=== PATIENT | female | born 1935 | race Caucasian/White ===

== ENCOUNTER 2023-02-27 04:18 | Emergency (ER) | payer OTHER, SELFPAY ==
[2023-02-27 04:18] VITALS: BMI 41.9
[2023-02-27 04:20] VITALS: BP 143/59
--- NOTE | 2023-02-27 04:24 | ED.GENMED ---
History of Present Illness
General
Chief Complaint: Back Pain
Time Seen by Provider: 02/27/23 04:23
History of Present Illness
History of Present Illness:
HPI: The patient presents due to rather severe back pain. She comes in from [facility]. She has had chronic low back pain and has had epidurals but none since the past 10 years or so. She does not think she has had any recent imaging
of the low back. Patient reports no new bowel or bladder incontinence or retention.
EXAM:
GENERAL: The patient prefers to lay on her left side, she is afebrile, occasional cough no
HEENT: Moist oral mucosa
CARDIOVASCULAR: No murmurs, normal heart rate and rhythm, No chest wall tenderness
PULMONARY: No respiratory distress, breath sounds are clear and equal
ABDOMEN: Soft with no peritoneal signs, no tenderness, elevated BMI
BACK: There is midline L-spine and right paraspinal muscular tenderness
NEUROLOGIC: Good strength all extremities, no coordination deficits, she has good strength in an L5 and S1 distribution to both lower extremities
PSYCHIATRIC: Appropriate mental status, normal insight and judgement
EXTREMITIES: Nontender, no edema, moves all extremities equally
SKIN: No rash, no lesions
ED COURSE:
4:20 AM: I initially evaluated patient
NUMBER AND COMPLEXITY OF PROBLEMS ADDRESSED AT THE ENCOUNTER
� Chronic conditions affecting care: Spinal stenosis, diabetes, high blood pressure, anxiety/depression, heart failure
� Acute Exacerbation and/or Progression of Chronic Illness: This is an acute exacerbation of chronic low back pain
� Differential Diagnosis includes: Exacerbation of low back pain, spinal stenosis, diabetic neuropathy, doubt infectious etiology as patient is afebrile
AMOUNT AND/OR COMPLEXITY OF DATA TO BE REVIEWED AND ANALYZED
� I performed an independent evaluation of and my interpretation is:
EKG:
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
X-rays:
Laboratory Studies:
Other:
� Review of other/old records: The patient was just discharged 2 days ago with acute hypoxic and hypercarbic respiratory failure/CHF
� Clinical information was obtained by an independent historian: I spoke to EMS upon arrival
� Prescriptions/Medications Considered but not given:
� Further testing considered but not performed:
RISK OF COMPLICATIONS AND/OR MORBIDITY OR MORTALITY OF PATIENT MANAGEMENT
� Social determinants of health affecting care: Lives at [facility]
� Discussion with other providers:
� Escalation of care including admission/observation vs risk of discharge considered: Given patient's advanced age will obtain CT imaging. Although she reports rather significant pain she appears fairly comfortable for the most
part. Will give 1 dose of Percocet. On reassessment at 5:45 AM, she overall feels improved after 1 Percocet was given.
Past History
Past History
ED Past Medical History: GERD, HTN, Hypercholesterolemia, NIDDM (With diabetic nephropathy), Hypothyroidism, Psychiatric (Anxiety/depression), Other (Spinal stenosis, gait abnormality, essential tremor, chronic pain syndrome,) and Other (Iron
deficiency anemia)
ED Past Surgical History: Cholecystectomy and Tonsilectomy
Social History
Tobacco: Non-smoker
Alcohol: None
Living: other (Lives in her own apartment at [facility].)
Employment: Retired
Phy Exam
Physical Exam
Physical Exam:
See HPI
Course
Orders/Labs/Results
Orders:
Orders
02/27/23 04:23
CT Lumbar Spine W/o Iv Contras Urgent
Comment:
Reason For Exam: severe low back pain
02/27/23 04:24
Oxycodone/Acetaminophen [Percocet 5/325] 1 tablet PO NOW STA
Vital Signs
Initial and Last Documented VS:
Initial Vital Signs
Temp Pulse Resp BP Pulse Ox
98.9 F 75 20 143/59 93
02/27/23 04:20 02/27/23 04:20 02/27/23 04:20 02/27/23 04:20 02/27/23 04:20
Last Documented Vital Signs
Temp Pulse Resp BP Pulse Ox
98.9 F 75 20 143/59 94
02/27/23 04:20 02/27/23 04:20 02/27/23 04:20 02/27/23 04:20 02/27/23 04:41
*Critical Care Note
Total Time (30-74mins, 75-104mins- exclusive of procedures): Not Applicable
ED Attending Note
-
Portions of this chart may have been created with voice recognition software.� Occasional wrong word or��sound alike� substitutions may have occurred due to the inherent limitations of voice recognition software.
Discharge Plan
Departure
Patient Disposition: Shelter/SNF
Date of Disposition: 02/27/23
Time of Disposition: 05:47
Patient with high blood pressure during this ER visit?: Yes
Discharge Problem:
Back pain
Instructions: Low Back Pain (DC), BLOOD PRESSURE
Prescriptions:
New
oxycodone-acetaminophen [Percocet] 5-325 mg tablet
1 tab PO Q8H PRN (Reason: Pain) Qty: 10 0RF
oxycodone-acetaminophen [Endocet] 5-325 mg tablet
1 tab PO TID PRN (Reason: Pain) Qty: 10 0RF
No Action
sennosides [senna] 1 TABLET tablet
1 tab PO BID
atorvastatin 20 MG tablet
20 mg PO QPM
levothyroxine 100 MCG tablet
100 mcg PO MOTUWETHFRSA
amlodipine 10 MG tablet
10 mg PO DAILY
omeprazole 20 MG capsule,delayed release(DR/EC)
20 mg PO DAILY
montelukast 10 MG tablet
10 mg PO QPM
cholecalciferol (vitamin D3) 1,000 UNITS tablet
1,000 units PO DAILY
Arnuity Ellipta 100 MCG blister with device
1 puff inhalation R DAILY
acetaminophen [Tylenol Extra Strength] 500 mg Tablet
1,000 mg PO TID
levothyroxine [Synthroid] 50 mcg Tablet
50 mcg PO HO
gabapentin 300 mg Capsule
300 mg PO HS
bisacodyl [Dulcolax (bisacodyl)] 5 mg Tablet,Delayed Release (Dr/Ec)
5 mg PO DAILYPRN PRN (Reason: CONSTIPATION)
gabapentin 100 mg Capsule
200 mg PO DAILY
alum-mag hydroxide-simeth [Mag-Al Plus] 200-200-20 mg/5 mL Suspension
30 ml PO Q6HPRN PRN (Reason: HEARTBURN) Qty: 0 0RF
levalbuterol HCl 0.63 mg/3 mL Solution For Nebulization
0.63 mg INHALATION R Q6
bumetanide 0.5 mg Tablet
0.5 mg PO DAILY
ipratropium bromide 0.02 % Solution
2.5 ml INHALATION R Q6
Januvia 25 mg Tablet
25 mg PO . DIRECTED
Rx Instructions:
start 02/12/23
guaifenesin [Mucinex] 600 mg Tablet Extended Release 12hr
600 mg PO Q12H
Eliquis 5 mg Tablet
5 mg PO BID Qty: 60 0RF
dapagliflozin propanediol [Farxiga] 10 mg Tablet
10 mg PO DAILY Qty: 30 0RF
Referrals:
Ortega Sherwood MD [Family Provider] -
Activity Restrictions/Additional Instructions:
The CAT scan shows severe degenerative disease. We gave a one-time dose of Percocet. I feel this would be reasonable to continue if your doctor at [place] feels appropriate. I have given you a paper prescription for Percocet to use only for severe
pain.
Interventions
Interventions:
*Risk Screen - Suicide Last Done: 02/27/23 04:20
*General Assessment Last Done: 02/27/23 04:20
*Neglect/Abuse Screening Last Done: 02/27/23 04:20
*ED COVID-19 Vaccine History Last Done: 02/27/23 04:44
ED-Musculoskeletal Assessment Last Done: 02/27/23 04:41
[2023-02-27] MEDS: PERCOCET 5/325 1 TABLET PO (04:31)
--- NOTE | 2023-02-27 07:39 | EDRN ---
Report received at shift change, pt is discharge and awaiting transport to [facility]. Pt denies any complaints at this time.
[2023-02-27 10:05] LABS: Glucose - Point of Care 158 mg/dl (70-99)
[2023-02-27 10:59] VITALS: BP 102/87
== END 2023-02-27 11:15 ==
LOC: EMR 04:18
PROVIDERS: EMERGENCY PHYSICIAN Emergency Medicine; FAMILY PHYSICIAN Family Medicine
DX: M54.50 Low back pain, unspecified (principal); I11.0 Hypertensive heart disease with heart failure; I50.9 Heart failure, unspecified; E11.21 Type 2 diabetes mellitus with diabetic nephropathy; E78.00 Pure hypercholesterolemia, unspecified; F32.A Depression, unspecified; F41.9 Anxiety disorder, unspecified; E03.9 Hypothyroidism, unspecified; M48.00 Spinal stenosis, site unspecified; D50.9 Iron deficiency anemia, unspecified; G25.0 Essential tremor; G89.4 Chronic pain syndrome; K21.9 Gastro-esophageal reflux disease without esophagitis; Z79.01 Long term (current) use of anticoagulants; Z98.1 Arthrodesis status; Z90.49 Acquired absence of other specified parts of digestive tract; Z88.8 Allergy status to other drugs, medicaments and biological substances
CPT/HCPCS: 99284; 72131; 82962

== ENCOUNTER → 2023-03-17 15:19 | Outpatient (REF) | payer OTHER, SELFPAY ==
[2023-03-17 16:01] LABS: Blood Urea Nitrogen 33 mg/dl (7-17); Calcium 8.8 mg/dl (8.4-10.2); Carbon Dioxide 26 mmol/L (22-30); Chloride 107 mmol/L (98-107); Glucose 195 mg/dl (70-99); Potassium 4.4 mmol/L (3.5-5.1); Sodium 138 mmol/L (135-145); eGFR 31.41
== END ==
LOC: OLABWHC 15:19
PROVIDERS: ATTENDING PHYSICIAN Family Medicine
DX: J96.01 Acute respiratory failure with hypoxia (principal)
CPT/HCPCS: 36415; 80048

== ENCOUNTER 2024-08-20 14:34 | Inpatient (IN) | payer OTHER, SELFPAY ==
[2024-08-20] VITALS (14 sets, daily range): BP systolic 104–180; BP diastolic 41–111; PULSE 2–75; BMI 38.6; BMI 39.7
[2024-08-20 10:11] LABS: Urine Character Clear (Clear)
[2024-08-20 10:15] LABS: Hematocrit 37.9 % (37.0-47.0); Hemoglobin 10.7 g/dL (12.0-16.0); Mean Corp Hgb Conc. 28.2 g/dL (33.0-37.0); Mean Corpuscular Volume 107.1 fL (81.0-99.0); Nucleated Red Blood Cells % 0.5 %; Platelet Count 312 10^3/uL (130-400); Red Cell Dist. Width 14.0 % (11.5-14.5)
[2024-08-20 10:25] LABS: Urine Red Blood Cell None Seen /HPF (0-2)
[2024-08-20 10:37] LABS: Hypochromasia 1+; Normal RBC Morphology No
--- NOTE | 2024-08-20 10:42 | ED.GENMED ---
History of Present Illness
General
Chief Complaint: Urinary Symptoms
Source: patient, family (Son) and direct care specialist
Time Seen by Provider: 08/20/24 10:33
History of Present Illness
History of Present Illness:
89-year-old female presents to the emergency room for evaluation of some confusion, lack of energy, low pulse ox reading. Patient resides at [facility]. She has a aide that stays with her who noted that she has been more tired and more
confused. Patient evidently has had some falls recently. Because of these falls the family was told she needed to have 24-hour aide coverage. Patient is unaware as to why she is here in the emergency room. She is not able to provide much
history. History abided by her son and the aide.
Past History
Past History
ED Past Medical History: GERD, HTN, Hypercholesterolemia, NIDDM (With diabetic nephropathy), Hypothyroidism, Psychiatric (Anxiety/depression), Other (Spinal stenosis, gait abnormality, essential tremor, chronic pain syndrome,) and Other (Iron
deficiency anemia)
ED Past Surgical History: Cholecystectomy and Tonsilectomy
Social History
Tobacco: Non-smoker
Alcohol: None
Living: other (Lives in her own apartment at [facility]
Employment: Retired
Phy Exam
Physical Exam
Physical Exam:
General: Awake, Alert, Oriented X3. Appears stated age, chronically ill, pale complexion
Vitals: Hypoxic on room air
Head: Atraumatic
Eyes: Pupils equal, EOMI
Throat: Airway intact, no exudates
Neck: Trachea midline
Lungs: Crackles bilateral bases
Heart: Regular rate, no murmurs
Abd: Soft, Nontender, No pulsatile mass
Neuro: grossly nonfocal
Skin: Warm, dry, no rash
Extremities: pulses equal b/l, 2+ edema
Course
Orders/Labs/Results
Orders:
Orders
08/20/24 09:50
Complete Blood Count/With Diff Urgent
08/20/24 09:58
Urinalysis Reflex To Culture Urgent
Date Specimen was Collected: 08/20/24
Time Specimen was Collected: 09:49
Urine Microscopic Reflex Cult Urgent
08/20/24 10:40
Add On- LAB Urgent
Tests Added?: bnp, troponin
08/20/24 10:41
CT Head W/o Iv Contrast Urgent
Comment:
Reason For Exam: altered mental status
CR Chest - 2 Views Urgent
Comment:
Reason For Exam: sob
08/20/24 11:06
COVID-19 Antigen Urgent
Source: Nasal Swab
Comprehensive Metabolic Panel Urgent
NT-proBNP Urgent
Troponin I Urgent
Venous Blood Gas Urgent
%Oxygen/Room Air: 4L
08/20/24 11:57
Ipratropium/Albuterol Sulfate [Duoneb] 3 ml INH R NOW ONE
08/20/24 12:43
Furosemide [Lasix] 40 mg IV NOW STA
08/20/24 12:46
Bipap [RESP] Urgent
Patient to use own unit?: No
Inspiratory Pressure (cm H2O): 12
Expiratory Pressure (cm H2O): 4
Oxygen Liter Flow: 4
08/20/24 13:16
Electrocardiogram (*1) Urgent
Reason for Study: Shortness of Breath
EKG- Treatment ONCE
08/20/24 13:54
Admit/Transfer Patient As Directed
Co-Sign Provider:
Level of Care: Inpatient admission
Assign to:: IMU- Intermediate Care
Physician / Group: Louie/Hospitalist
Diagnosis: Acute hypoxic and hypercapn resp failure, AEHFpEF
Reason for Hospitalization: Acute hypoxic and hypercapn resp failure, AEHFpEF
Expected length of stay greater than two midnights?: Yes
ELOS- Estimated Length of Stay in days: 3
I certify the patient meets the requirements for IP care: Yes
PRN Pain Medication Management As Directed
May give lesser potent ordered pain med per pt: Yes
preference::
Protocol:: Medication orders for pain may be administered in a
manner that supports deferring to patient preference
when the pt is:
- Requesting an ordered lesser potent pain medication.
Least to most potent pain medications are defined
as: acetaminophen < NSAID < tramadol < opioids
(morphine, oxycodone, hydromorphone).
- Requesting a lesser dose of the same medication IF
ORDERED.
- Requesting a less intrusive route of administration
if both routes are prescribed by the provider (PO <
IV).
08/20/24 14:02
Code Status As Directed
Resuscitation Status: Do not resuscitate
Reached after discussion with pt or family/Healthcare POA: Yes
DNR Bracelet Application ONCE
Abnormal Lab Results
08/20/24 08/20/24 08/20/24
09:50 09:58 11:06
WBC 12.0 H 10^3/uL
(4.8-10.8)
RBC 3.54 L 10^6/uL
(4.20-5.40)
Hgb 10.7 L g/dL
(12.0-16.0)
MCV 107.1 H fL
(81.0-99.0)
MCHC 28.2 L g/dL
(33.0-37.0)
Abs Immat Gran (auto) 0.2 H 10^3/uL
(0-0.05)
Absolute Neuts (auto) 9.7 H 10^3/uL
(1.4-6.5)
Absolute Lymphs (auto) 1.1 L 10^3/uL
(1.2-3.4)
Absolute Monos (auto) 0.8 H 10^3/uL
(0.1-0.6)
Immature Gran % 1.4 H %
(0-0.5)
Neutrophils % 80.7 H %
(42.2-75.2)
Lymphocytes % 9.5 L %
(20.5-51.1)
VBG pH 7.20 L
(7.32-7.43)
VBG pCO2 76 H* mmHg
(35-48)
VBG pO2 54 H mmHg
(30-50)
VBG HCO3 29.7 H mmol/L
(22-27)
Chloride 108 H mmol/L
(98-107)
Carbon Dioxide 32 H mmol/L
(22-30)
BUN 52 H mg/dl
(7-17)
Creatinine 1.8 H mg/dL
(0.6-1.0)
Glucose 396 H mg/dl
(70-99)
Troponin I 0.107 H* ng/ml
Total Protein 6.1 L g/dl
(6.3-8.2)
Albumin 3.4 L g/dl
(3.5-5.0)
Urine Bacteria (Reflex) Few A
(Negative)
Urine Glucose 4+ A
(Negative)
Urine Albumin (Reflex) 3+ A
(Neg - Trace)
08/20/24 09:50
08/20/24 11:06
Vital Signs
Initial and Last Documented VS:
Initial Vital Signs
Temp
97.6 F
08/20/24 09:41
Last Documented Vital Signs
Temp Pulse Resp BP Pulse Ox
97.6 F 74 19 125/111 81
08/20/24 09:41 08/20/24 14:15 08/20/24 14:15 08/20/24 14:00 08/20/24 15:16
MDM/Problems Addressed
Differential Diagnosis Includes:
Urinary tract infection, electrolyte abnormality, heart failure, pneumonia or viral infection
MDM/Problems Addressed:
Urinalysis not consistent with a urinary tract infection. However the patient's overall presentation suggest there may be some other process other than a UTI. Pulse ox seemed persistently low though it was not picking up a great waveform.
Oxygenation did improve with supplemental oxygen. VBG shows CO2 retention with a respiratory acidosis. Chest x-ray is poor inspiratory effort. BNP is elevated. Troponin is elevated. Suspect the patient has a predominance of congestive heart
failure though a component of COPD may exist as well. Treat with a DuoNeb here. 40 of IV Lasix. BiPAP initiated given the respiratory acidosis
Chronic conditions affecting care: HTN, Cardiomyopathy and COPD
*Radiology
Radiology exam reviewed: preliminary read by ED provider (Poor inspiratory effort perhaps some cephalization)
*Pulse Oximetry
SaO2: 81
Oxygen Mode of Delivery: Room air
Patient hypoxic: yes
*Critical Care Note
Total Time (30-74mins, 75-104mins- exclusive of procedures): 38 min
comment:
Critical care statement: A total of 38 minutes of critical care time was provided for this patient. This includes management of unstable vital signs, evaluation of the patient at bedside, reviewing the patient's pertinent medical records, discussion
with consultants, review of old EKGs and review of pertinent medical records. This time with separate from time utilized to perform the aforementioned documented procedures
ED Attending Note
-
Portions of this chart may have been created with voice recognition software.� Occasional wrong word or��sound alike� substitutions may have occurred due to the inherent limitations of voice recognition software.
Discharge Plan
Departure
Patient Disposition: Admit
Date of Disposition: 08/20/24
Time of Disposition: 12:48
Admit to: IMU
Presentation/result/management discussed w/ accepting MD/DO: Hospitalist
Condition: Fair
Discharge Problem:
CHF (congestive heart failure), Acute respiratory failure with hypercapnia
Interventions
Interventions:
*Risk Screen - Suicide Last Done: 08/20/24 09:41
*General Assessment Last Done: 08/20/24 09:41
*Neglect/Abuse Screening Last Done: 08/20/24 09:41
*ED- Fall Risk Assessment Last Done: 08/20/24 09:41
*ED COVID-19 Vaccine History Last Done: 08/20/24 09:41
ED-Female Genitourinary Assessment Last Done: 08/20/24 10:31
[2024-08-20 11:27] LABS: COVID-19 Antigen Negative (Negative)
[2024-08-20 11:34] LABS: Venous Blood Gas B.E. 0.1 mmol/L (-4 to +4); Venous Blood Gas O2 Sat % 89.3 %
[2024-08-20 11:36] LABS: Venous Blood Gas O2 Therapy 4L
[2024-08-20 11:57] LABS: ALT (SGPT) 10 U/L (0-35); AST (SGOT) 14 U/L (14-36); Albumin 3.4 g/dl (3.5-5.0); Alkaline Phosphatase 93 U/L (38-126); Blood Urea Nitrogen 52 mg/dl (7-17); Calcium 8.7 mg/dl (8.4-10.2); Carbon Dioxide 32 mmol/L (22-30); Chloride 108 mmol/L (98-107); Estimated Creatinine Clearance 25 ml/min; Glucose 396 mg/dl (70-99); Potassium 4.8 mmol/L (3.5-5.1); Sodium 141 mmol/L (135-145); Total Protein 6.1 g/dl (6.3-8.2); eGFR 26.93
[2024-08-20] MEDS: DUONEB 3 ML INH ×3 (12:03→19:22)
[2024-08-20 12:13] LABS: Troponin I 0.107 ng/ml
--- NOTE | 2024-08-20 13:00 | HPS.HSE ---
Family Physician
-
Family Physician: Anu Earl
Chief Complaint
-
Shortness of breath and weakness
History of Present Illness
The patient is an 89-year-old woman with past medical history significant for prior admission here 02/2023 for acute hypoxic and hypercarbic respiratory failure, heart failure with preserved EF, pulmonary hypertension, right bundle branch block,
essential hypertension, DVT and presumed pulmonary embolism, on Eliquis, CKD, anemia of chronic disease, and hypothyroidism. Who presents to the emergency department via EMS secondary to increasing weakness, increasing confusion, lack of energy, and
noted noticed to have a low pulse ox reading where she resides in [facility]. She has an aide that stays with her who notes that she has she has been more tired and confused and has been falling recently. The family was told that she requires
24-hour aide secondary to falls and weakness.In the emergency department she is tachypneic in the 30s and she is started on BiPAP therapy.
Medical History
Past Medical History
Past Medical History: Reports CAD, CHF, COPD, GERD, HTN and Hypercholesterolemia
Past Surgical History: Reports Cholecystectomy and Tonsilectomy
Social History
Tobacco: Non-smoker
Alcohol: None
Drug: None
Living: Assisted Living (Lives in her own apartment at [facility])
Family History
Family History: Not pertinent
Allergies / Home Medications
Allergies reflects when Allergies were last updated in [employer].
Home Medications with original date entered in [employer]
Allergy/Medication List:
Allergies
Allergy/AdvReac Type Severity Reaction Status Date / Time
diltiazem (From Cardizem) Allergy SEE BELOW Verified 08/20/24 09:48
hydralazine Allergy Rash Verified 08/20/24 09:48
Home Medications
amlodipine 10 mg tablet 10 mg PO DAILY Blood pressure 05/20/21
atorvastatin 20 mg tablet 20 mg PO DAILY High cholesterol 05/20/21
cholecalciferol (vitamin D3) 25 mcg (1,000 unit) tablet 1,000 units PO MOWEFR Supplement 05/20/21
fluticasone furoate 100 mcg/actuation blister powder for inhalation (Arnuity Ellipta) 1 puff inhalation R DAILY Lung/breathing issues 05/20/21
levothyroxine 100 mcg tablet 100 mcg PO MOTUWETHFRSA Thyroid 05/20/21
montelukast 10 mg tablet 10 mg PO QPM Lung/breathing issues 05/20/21
omeprazole 20 mg capsule,delayed release 20 mg PO DAILY Gastrointestinal issue 05/20/21
sennosides 8.6 mg tablet (senna) 1 tab PO BID Constipation 05/20/21
acetaminophen 500 mg tablet (Tylenol Extra Strength) 1,000 mg PO TID Pain 01/25/23
bisacodyl 5 mg tablet,delayed release (Dulcolax (bisacodyl)) 5 mg PO DAILYPRN PRN CONSTIPATION 01/25/23
gabapentin 300 mg capsule 300 mg PO BID Pain 01/25/23
levothyroxine 50 mcg tablet (Synthroid) 50 mcg PO HO Thyroid 01/25/23
bumetanide 0.5 mg tablet 0.5 mg PO BID Fluid Retention/Swelling 02/12/23
guaifenesin 600 mg tablet, extended release 12 hr (Mucinex) 600 mg PO Q12H MUCUS 02/12/23
ipratropium bromide 0.02 % solution for inhalation 2.5 ml inhalation R Q6 Lung/Breathing Issues 02/12/23
levalbuterol HCl 0.63 mg/3 mL solution for nebulization 0.63 mg inhalation R Q6 PRN Lung/Breathing Issues 02/12/23
apixaban 5 mg tablet (Eliquis) 5 mg PO BID #60 tabs 02/25/23
dapagliflozin propanediol 10 mg tablet (Farxiga) 10 mg PO DAILY #30 tabs 02/25/23
aluminum-mag hydroxide-simethicone 200 mg-200 mg-20 mg/5 mL oral susp (Mag-Al Plus) 5 ml PO QIDPRN PRN HEARTBURN 08/20/24
lidocaine 4 % topical patch 1 patch topical DAILY 08/20/24
linagliptin 5 mg tablet 5 mg PO DAILY 08/20/24
Review of Systems
-
A 12 point ROS was completed and negative except as noted: Yes
Physical Exam
Vital Signs
Vital Signs
Temp
97.6 F
08/20/24 09:41
Physical Exam
General: Appears Chronically Ill
HEENT: NormoCephalic, Anicteric and Other (BIPAP)
Respiratory: Wheezes, Crackles and Other (BIPAP)
Cardiac: S1/S2, Regular Rhythm and Murmur
GI: Soft, Non Tender, Non Distended, Normal Bowel Sounds and Other (obese)
Musculoskeletal: No Clubbing, No Cyanosis, Edema, Left Lower Extremity and Edema, Right Lower Extremity
Skin: Warm and Dry
Neuro: No Motor Deficits and Nonfocal/grossly intact
Psych: Calm
Laboratory Results
-
08/20/24 09:50
08/20/24 11:06
Laboratory Results
Total Bilirubin 0.3 mg/dl (0.2-1.3) 08/20/24 11:06
AST 14 U/L (14-36) 08/20/24 11:06
ALT 10 U/L (0-35) 08/20/24 11:06
Alkaline Phosphatase 93 U/L (38-126) 08/20/24 11:06
Troponin I 0.107 ng/ml H* 08/20/24 11:06
Data Reviewed
-
Medical Tests (Nuc Med, Echo, EKG etc): Image Personally Visualized and interpreted and Report Reviewed by me
Impression/Plan
-
IMPRESSION:The patient is an 89-year-old woman with past medical history significant for prior admission here 02/2023 for acute hypoxic and hypercarbic respiratory failure, heart failure with preserved EF, pulmonary hypertension, right bundle branch
block, essential hypertension, DVT presumed pulmonary embolism, on Eliquis, CKD, anemia of chronic disease, and hypothyroidism, who presents to the emergency department via EMS secondary to increasing weakness, increasing confusion over the prior
several days, general lack of energy, and noted noticed to have a low pulse ox reading where she resides in [facility]. She recently starting having 24/7 are on Wednesday night (one day prior to hospitalization), and was working on getting
medications in order, however son at bedside thinks that patient may be getting her medications confused/ not taking them appropriately. She has an aide that stays with her who notes that she has she has been more tired and confused and has been
falling recently. The family was told that she requires 24-hour aide secondary to falls and weakness. In the emergency department she is tachypneic in the 30s and she is started on BiPAP therapy.
# Acute hypoxic and hypercapnic respiratory failure likely secondary to acute exacerbation of CHF and likely component of COPD exacerbation, possibly in part due medication non-compliance from confusion
-Admit inpatient level of care to IMU with continued BiPAP noninvasive ventilation that was initiated in the ED and oxygen at 56% FiO2 at 9 Liters
-Continue with IV Lasix twice daily and monitor laboratory
-Serial cardiac biomarkers
-echo, daily weights, I/O
-check ABG
-Cards and Pulm consultation appreciated
-Duo-neb scheduled
#Acute metabolic encephalopathy likely due to hypercapnic RF, no evidence for acute infection at this time
-cont BIPAP, ABG pending
-Nebs scheduled, monitor
# Troponin elevation likely related to demand ischemia from acute exacerbation of heart failure
-Echocardiogram
-serial cardiac biomarkers
-Most recent echo here was February 2023 showed mild to moderate mitral stenosis, mild mitral regurgitation, moderate aortic stenosis, trace aortic regurgitation, with normal biventricular size and systolic function without regional wall motion
abnormalities. will repeat echo
#Valvular dx
- known mild /MS and A/CKI
-repeat echo pending
#RBBB, chronic, unchanged
-EKG without acute ischemia
# Metabolic acidosis, likely a mixed picture with respiratory component
-ABG pending
# Uncontrolled type 2 diabetes, with hyperglycemia glucose of 326 on admission
-SSI
-hold Linagliptin for now, continue Farxiga
# Generalized weakness
-PT eval
-CM eval for dispo-may require higher level of care at [facility], currently independent w 31/08 care that started this prior Wednesday
#BRYAN on CKD
creat 1.8 up from baseline likely 1.3-1.6
-avoid nephrotoxic agents, monitor w diuresis
#COPD, likely acute exacerbation
-BIPA as above
-on Arnuity, levalbuterol, ipratropium, montelukast OP- will give scheduled Duo-nebs for now and cont montelukast and Arnuity
# Essential hypertension
-amlodipine w hold parameters
# GERD
# Hyperlipidemia
# Hwo-dkflhom-eroikbhlx diabetes with diabetic nephropathy
# Hypothyroidism
# Anxiety and depression
# Spinal stenosis with gait abnormality
DVT proph-Eliquis
DNR
[2024-08-20] MEDS: LASIX 40 MG IV ×2 (13:14→17:45)
--- NOTE | 2024-08-20 14:34 | CM ---
CM reviewed chart and met with pt and son bedside in ED. Pt lives in [place] apt at [facility].
Needs assistance with ADLs and personal care, has aides through [employer], previously 5 hours a day Wednesday through Wednesday, but will be 24 hours a day when pt is discharged, pt arranged them herself. Pt ambulates with RW, also has SPC.
Pt did have Bipap machine in past but told me no one ever taught her how to use it so she returned it.
PCP: Anu Earl
Pharmacy: [facility]
Pt's son expressed concern that pt may need higher LOC at [facility], family will discuss.
CM will continue to follow for discharge planning needs.
--- NOTE | 2024-08-20 14:53 | CON.PUL ---
Consultation
Consultation Request
Date/Time Consultation Requested: 08/20
Date/Time Consultation Performed: 08/20
Reason for Consultation: Hypoxia
Medical History
-
History of Present Illness:
History obtained from the patient and also from the chart. 89-year-old female resident of [facility], presents with lack of energy, low oxygen level, confusion. She has a history of diabetes, chronic pain syndrome. ED records also suggest
urinary symptoms. Upon arrival to [facility], noted to be afebrile. No other vitals are noted on intake, white count 12, creatinine 1.8. VBG showed pCO2 of 76, placed on BiPAP, admitted for further management. We are asked to help from
a pulmonary standpoint
According to the patient, she is not sure why she is here but she states 'not feeling well'. She is presently off BiPAP, I observed her eating dinner.
She denies chest pain, abdominal pain, nausea pain she has some mild left flank pain as she admits to fall and hitting her bathtub on the left flank about 2 weeks ago
She states she lives independently, is able to take care of herself
.
PMH: History of heart failure, coronary disease, hypertension, hyperlipidemia, COPD, GERD, history of pulmonary hypertension, right bundle branch block, DVT on chronic anticoagulation, CKD, chronic anemia, hypothyroidism. History of chronic pain
syndrome per records. History of cholecystectomy, tonsillectomy
Past Medical History
Past Medical History: None (See above)
Past Surgical History: None (See above)
Social History
Tobacco: Non-smoker
Alcohol: None
Drug: None
Living: Custodial ([facility], her own apartment)
Family History
Family History: Reviewed & Not Pertinent
Allergies / Home Medications
Allergies
Allergy/AdvReac Type Severity Reaction Status Date / Time
diltiazem (From Cardizem) Allergy SEE BELOW Verified 08/20/24 09:48
hydralazine Allergy Rash Verified 08/20/24 09:48
Home Medications
�Medication �Instructions �Recorded �Confirmed �Last Taken �Type
amlodipine 10 mg tablet 10 mg PO DAILY Blood pressure 05/20/21 08/20/24 Unknown History
atorvastatin 20 mg tablet 20 mg PO DAILY High cholesterol 05/20/21 08/20/24 Unknown History
cholecalciferol (vitamin D3) 25 1,000 units PO MOWEFR Supplement 05/20/21 08/20/24 Unknown History
mcg (1,000 unit) tablet
fluticasone furoate 100 1 puff inhalation R DAILY 05/20/21 08/20/24 Unknown History
mcg/actuation blister powder for Lung/breathing issues
inhalation (Arnuity Ellipta)
levothyroxine 100 mcg tablet 100 mcg PO MOTUWETHFRSA Thyroid 05/20/21 08/20/24 Unknown History
montelukast 10 mg tablet 10 mg PO QPM Lung/breathing issues 05/20/21 08/20/24 Unknown History
omeprazole 20 mg capsule,delayed 20 mg PO DAILY Gastrointestinal 05/20/21 08/20/24 Unknown History
release issue
sennosides 8.6 mg tablet (senna) 1 tab PO BID Constipation 05/20/21 08/20/24 Unknown History
acetaminophen 500 mg tablet 1,000 mg PO TID Pain 01/25/23 08/20/24 Unknown History
(Tylenol Extra Strength)
bisacodyl 5 mg tablet,delayed 5 mg PO DAILYPRN PRN CONSTIPATION 01/25/23 08/20/24 Unknown History
release (Dulcolax (bisacodyl))
gabapentin 300 mg capsule 300 mg PO BID Pain 01/25/23 08/20/24 Unknown History
levothyroxine 50 mcg tablet 50 mcg PO HO Thyroid 01/25/23 08/20/24 Unknown History
(Synthroid)
bumetanide 0.5 mg tablet 0.5 mg PO BID Fluid 02/12/23 08/20/24 Unknown History
Retention/Swelling
guaifenesin 600 mg tablet, 600 mg PO Q12H MUCUS 02/12/23 08/20/24 Unknown History
extended release 12 hr (Mucinex)
ipratropium bromide 0.02 % 2.5 ml inhalation R Q6 02/12/23 08/20/24 Unknown History
solution for inhalation Lung/Breathing Issues
levalbuterol HCl 0.63 mg/3 mL 0.63 mg inhalation R Q6 PRN 02/12/23 08/20/24 Unknown History
solution for nebulization Lung/Breathing Issues
apixaban 5 mg tablet (Eliquis) 5 mg PO BID #60 tabs 02/25/23 08/20/24 Unknown Rx
dapagliflozin propanediol 10 mg 10 mg PO DAILY #30 tabs 02/25/23 08/20/24 Unknown Rx
tablet (Farxiga)
aluminum-mag hydroxide-simethicone 5 ml PO QIDPRN PRN HEARTBURN 08/20/24 08/20/24 Unknown History
200 mg-200 mg-20 mg/5 mL oral susp
(Mag-Al Plus)
lidocaine 4 % topical patch 1 patch topical DAILY 08/20/24 08/20/24 Unknown History
linagliptin 5 mg tablet 5 mg PO DAILY 08/20/24 08/20/24 Unknown History
Review of Systems
-
All other systems: Negative unless noted
Vitals / Labs / Diagnostic Testing
Vital Signs
Temp Pulse Resp BP Pulse Ox
97.6 F 74 19 125/111 98
08/20/24 09:41 08/20/24 14:15 08/20/24 14:15 08/20/24 14:00 08/20/24 14:15
Lab Data
08/20/24 09:50
08/20/24 11:06
Diagnostic Testing:
Physical Exam
-
HEENT: Normocephalic, Anicteric and Other (Large neck)
Cardiovascular: S1/S2, Regular Rhythm and Murmur (2/6 systolic murmur)
Respiratory: Wheeze (Mild), Rales (few), Rhonchi (n) and Non-Labored Respirations
GI: Soft, Non Distended (Obese) and Non Tender
Neurology: Awake, Alert, Oriented (Know she is in the hospital) and No Motor Deficits (Moves all extremities)
Skin: Other (Left flank mild bruise, no abdominal discomfort)
General: Comfortable (Conversant)
Assessment
-
89-year-old female with history of heart failure, hypoxic and hypercarbic respiratory in the past, pulm hypertension, right bundle branch block, DVT/PE presents with increased weakness, shortness of breath, confusion. Patient also notes she fell 2
weeks ago when she hit the bathtub, denied loss of consciousness or head trauma. She admits to hitting her left flank. Admitted for hypoxic and hypercarbic respiratory failure requiring BiPAP. We are asked to comment on pulmonary process
Acute hypoxic respiratory insufficiency, requiring BiPAP
Suspected chronic hypercarbia based on VBG
Suspected acute heart failure
Diastolic dysfunction, valvular disease
Moderate aortic stenosis per records
Normal EF per echo in February 2023
Right bundle branch block, per EKG
Gait dysfunction, recent fall 2 weeks ago
Acute renal insufficiency, creatinine 1.8
Baseline 1.3-1.6
Hyperglycemia
Conditions present prior to admission
History of recurrent admission for TME
Recurrent UTI, E. coli
Coronary disease
Valvular disease, aortic stenosis/mitral stenosis
Asthma/COPD
Hypothyroidism
Hypertension/hyperlipidemia
[facility] resident
DNR
Plan/recommendations
At this time, patient appears to have stabilized
Acute hypercarbic respiratory failure however this is a VBG.
ABG confirms mild hypercarbia, pH 7.29. Similar to prior ventilatory abnormality in February 2023 at which time she was here for hypoxic and hypercarbic respiratory failure
Patient is presently off her BiPAP, she is feeling improved
Would continue BiPAP tonight and as needed
For now can keep off
Avoid narcotic therapy, sedation
Head of bed elevated
Remains on outpatient medications, including Eliquis.
Patient currently receiving Lasix twice daily
Follow urine output, creatinine
Follow electrolytes
Hyperglycemia noted. Follow blood sugars. Currently on insulin sliding scale, continue outpatient medications
DNR status noted
Reviewed with nursing
We will follow
--- NOTE | 2024-08-20 15:16 | CON.CAR ---
Addendum entered and electronically signed by Joey Palacios MD 08/20/24 17:31:
Correction: Resident note and not WOODWORKING MACHINE OPERATOR note.
Addendum entered and electronically signed by Joey Palacios MD 08/20/24 17:29:
I saw and examined the patient.
The WOODWORKING MACHINE OPERATOR's note was reviewed and I agree with the note.
Comment: Acute respiratory failure. We suspect mixed etiology. Perhaps more pulmonary than cardiac. But we will continue diuresis, r/o [place], and update an echocardiogram. Meds can be adjusted based on echo and HF diagnosis but given lung disease
with wheezing will avoid BB unless severe LV dysfxn is found.
Echo 02/15/2023: Normal LVEF/RV fxn, mild/mod MS, mild MR, mod
Original Note:
Consultation
Consultation Request
Date/Time Consultation Requested: 08/20/24 14:10
Date/Time Consultation Performed: 08/20/24 15:00
Requesting Provider: Dr. Ashwin Oneal
Performing Provider: Dr. Joey Palacios
Reason for Consultation: CHF exacerbation
Medical History
-
Chief Complaint: CHF exacerbation
History of Present Illness:
89-year-old female with past medical history of prior admission here in 02/2023 for acute hypoxemic and hypercarbic respiratory failure, heart failure with preserved ejection fraction, pulmonary hypertension, right bundle branch block, essential
hypertension, DVT and presumed PE, on Eliquis, CKD, anemia of chronic disease, hypothyroidism, hyperlipidemia, essential tremor, spinal stenosis, gait abnormality and peripheral neuropathy presented to the ER due to increasing weakness, confusion,
lack of energy. Son Jim was present and stated that she has had recurrent falls recently and Dr. García'evangelista Ellington recommended 24-hour care. Caregiver at [facility] was having a hard time getting him to the bathroom, etc. due to increasing
instability, weakness and confusion. Patient has felt increasingly short of breath in the last few days and noted to have low pulse ox at [facility]. She was brought to ER via EMS. She denies any chest pain, heart palpitations, N/V/D, ab pain,
dysuria, increased urinary frequency or feelings like she is going to pass out. She states that when she has fallen it is due to feeling off balance rather than feeling lightheaded.
In the ED, blood pressure 180/67, heart rate 65, respiratory rate 30 placed on BiPAP 56% FiO2 on 9 L, afebrile, WBC 12.0, left shift 80.7% neutrophil, troponin 0.107, creatinine 1.8, blood glucose 396. VBG pH 7.2, pCO2 76. Portable chest x-ray (-)
for acute process. EKG normal sinus with RBBB. She received 40mg IV lasix, duonebs and was admitted for further evaluation. Cardiology consulted for suspected CHF exacerbation.
Past Medical History
Past Medical History: CHF (HFpEF (02/15/23 EF 55-60%) ), Hypercholesterolemia, Hypothyroidism, Valvular Disease (moderate aortic stenosis) and Other (GERD, hypertension, type 2 diabetes with diabetic neuropathy, anxiety/depression, spinal stenosis,
gait abnormality, essential tremor, chronic pain syndrome, iron deficiency anemia)
Past Surgical History: Other (Cholecystectomy, tonsillectomy)
Social History
Tobacco: Non-Smoker
Alcohol: None
Drug: None
Living: Assisted Living
Employment: Retired
Family History
Family History: Other (mom - CAD)
Allergies / Home Medications
Allergy/AdvReac Type Severity Reaction Status Date / Time
diltiazem (From Cardizem) Allergy SEE BELOW Verified 08/20/24 09:48
hydralazine Allergy Rash Verified 08/20/24 09:48
�Medication �Instructions �Recorded �Confirmed �Type
amlodipine 10 mg tablet 10 mg PO DAILY Blood pressure 05/20/21 08/20/24 History
atorvastatin 20 mg tablet 20 mg PO DAILY High cholesterol 05/20/21 08/20/24 History
cholecalciferol (vitamin D3) 25 1,000 units PO MOWEFR Supplement 05/20/21 08/20/24 History
mcg (1,000 unit) tablet
fluticasone furoate 100 1 puff inhalation R DAILY 05/20/21 08/20/24 History
mcg/actuation blister powder for Lung/breathing issues
inhalation (Arnuity Ellipta)
levothyroxine 100 mcg tablet 100 mcg PO MOTUWETHFRSA Thyroid 05/20/21 08/20/24 History
montelukast 10 mg tablet 10 mg PO QPM Lung/breathing issues 05/20/21 08/20/24 History
omeprazole 20 mg capsule,delayed 20 mg PO DAILY Gastrointestinal 05/20/21 08/20/24 History
release issue
sennosides 8.6 mg tablet (senna) 1 tab PO BID Constipation 05/20/21 08/20/24 History
acetaminophen 500 mg tablet 1,000 mg PO TID Pain 01/25/23 08/20/24 History
(Tylenol Extra Strength)
bisacodyl 5 mg tablet,delayed 5 mg PO DAILYPRN PRN CONSTIPATION 01/25/23 08/20/24 History
release (Dulcolax (bisacodyl))
gabapentin 300 mg capsule 300 mg PO BID Pain 01/25/23 08/20/24 History
levothyroxine 50 mcg tablet 50 mcg PO HO Thyroid 01/25/23 08/20/24 History
(Synthroid)
bumetanide 0.5 mg tablet 0.5 mg PO BID Fluid 02/12/23 08/20/24 History
Retention/Swelling
guaifenesin 600 mg tablet, 600 mg PO Q12H MUCUS 02/12/23 08/20/24 History
extended release 12 hr (Mucinex)
ipratropium bromide 0.02 % 2.5 ml inhalation R Q6 02/12/23 08/20/24 History
solution for inhalation Lung/Breathing Issues
levalbuterol HCl 0.63 mg/3 mL 0.63 mg inhalation R Q6 PRN 02/12/23 08/20/24 History
solution for nebulization Lung/Breathing Issues
apixaban 5 mg tablet (Eliquis) 5 mg PO BID #60 tabs 02/25/23 08/20/24 Rx
dapagliflozin propanediol 10 mg 10 mg PO DAILY #30 tabs 02/25/23 08/20/24 Rx
tablet (Farxiga)
aluminum-mag hydroxide-simethicone 5 ml PO QIDPRN PRN HEARTBURN 08/20/24 08/20/24 History
200 mg-200 mg-20 mg/5 mL oral susp
(Mag-Al Plus)
lidocaine 4 % topical patch 1 patch topical DAILY 08/20/24 08/20/24 History
linagliptin 5 mg tablet 5 mg PO DAILY 08/20/24 08/20/24 History
Review of Systems
-
History Source: Patient
Constitutional: No Symptoms
EENT: No Symptoms
Respiratory: Trouble Breathing
Cardiac: No Symptoms
Abdomen/GI: No Symptoms
: No Symptoms
Neurological: Weakness
Physical Exam
Vital Signs
Temp Pulse Resp BP Pulse Ox
97.6 F 74 19 125/111 81
08/20/24 09:41 08/20/24 14:15 08/20/24 14:15 08/20/24 14:00 08/20/24 15:16
Lab Results
08/20/24 09:50
08/20/24 11:06
Troponin I 0.107 ng/ml H* 08/20/24 11:06
Iie-I-Jowzjscrtst Pept 51248 pg/ml 08/20/24 11:06
Physical Exam
General: Respiratory Distress
Respiratory: Wheezes
Cardiac: S1/S2, Regular Rhythm and Murmur (4/6 systolic ejection murmur at aortic point )
GI: Soft, Non Tender, Non Distended and Normal Bowel Sounds
Musculoskeletal: No Cyanosis and No Edema
Skin: Warm and Dry
Neuro: AO x 3
Psych: Calm
Impression / Plan
-
89-year-old female with past medical history of prior admission here in 02/2023 for acute hypoxemic and hypercarbic respiratory failure, heart failure with preserved ejection fraction, pulmonary hypertension, right bundle branch block, essential
hypertension, DVT and presumed PE on Eliquis, CKD, anemia of chronic disease, hypothyroidism, hyperlipidemia, essential tremor, spinal stenosis, gait abnormality and peripheral neuropathy presented to the ER due to increasing weakness, confusion,
lack of energy.
Acute hypoxic and hypercapnic respiratory failure likely secondary to COPD exacerbation, possibly in part due medication non-compliance from confusion. Unclear if CHF exacerbation playing a role but unable to exclude.
-She did state she has not been taking her levalbuterol neb because she cannot find her medication making COPD exacerbation more likely.
-BNP 13,100 however no significant lower extremity swelling, wheezes not crackles on physical exam
-Baseline weight does appear around 92.9 from prior hospitalization but that was a year and a half ago.
-Agree with BiPap - wean O2 as able
-last echo 02/15/23 LVEF 55-60%, mod aortic stenosis, pulm artery pressure 38mmg
-Repeat echo pending
-ABG pending
-Agree with Lasix 40 BID for now
-Cont farxiga
-Monitor I&O, daily weights, fluid restriction and low Na diet
-Pulmonary appreciated
Troponin elevation - likely demand ischemia from COPD exacerbation
-EKG non-ischemic
-Cont Bipap, ABG pending
-Duonebs
-Trend troponin to peak
Valvular disease - mod , mild MR, MS
-moderate aortic stenosis
-Repeat echo pending
RBBB
-EKG non-ischemic
HTN
-Currently hypertensive
-Amlodipine with hold parameters
Hx DVT
-On eliquis 5 BID
Metabolic acidosis, likely a mixed picture with respiratory component
-ABG pending
DVT on eliquis
DNR
[2024-08-20 16:41] LABS: B.E. 2.0 mmol/L; HCO3 29.8 mmol/L (21-28); O2 Saturation % 99.4 % (94-98); PCO2 62 mmHg (32-35); PO2 130 mmHg (83-108)
[2024-08-20 16:58] LABS: Glucose - Point of Care 249 mg/dl (70-99)
[2024-08-20 17:40] LABS: Troponin I 0.155 ng/ml
[2024-08-20] MEDS: SINGULAIR 10 MG PO (17:46)
[2024-08-20] MEDS: TYLENOL 1000 MG PO ×2 (17:46→21:24)
[2024-08-20] MEDS: FLUSH (NSS) 1 FLUSH IV (17:46)
[2024-08-20] MEDS: MUCINEX 600 MG PO (17:46)
[2024-08-20] MEDS: NOVOLOG FLEXPEN-LOW RESISTANCE 2 UNITS SC (18:04)
--- NOTE | 2024-08-20 18:20 | PTCARENOTE ---
Received patient from ED on stretcher. Patient AAO X2. Arrived on BIPAP. Patient admitted with hypercarbic respiratory failure. Blood gas obtained on unit. Patient currently on 3.5L o2 via n/c with pulse ox 95%-96%. Patient to wear BIPAP
tonight when sleeping. Lungs with scattered expiratory/inspiratory wheezing, coarse breath sounds and crackles at bases. Occasional non-productive cough. SR with PVC's HR 80'S-90'S. Patient received two dose of IV lasix today. Pure wick in place
at patient's request. Oriented patient to room. Call dickerson in reach. Patient had falls at home. Bed alarm in on.
[2024-08-20] MEDS: FLOVENT 44 MCG INHALER 2 PUFF INH (19:23)
[2024-08-20] MEDS: NEURONTIN 300 MG PO (20:10)
[2024-08-20] MEDS: ELIQUIS 5 MG PO (20:10)
[2024-08-20] MEDS: DESENEX/MITRAZOL/ZEASORB 1 APPLIC TOPICAL (20:10)
[2024-08-20] MEDS: SENOKOT 8.6 MG PO (20:11)
[2024-08-20 21:44] LABS: Glucose - Point of Care 223 mg/dl (70-99)
--- NOTE | 2024-08-20 23:38 | PTCARENOTE ---
Assumed care for patient overnight. Pt AAOx3, forgetful at times. Received pt on 3L NC. SpO2 95%. Pt has a moist occasional cough. Fine crackles at the base of the lungs, coarse throughout. NSR with PVCs on the monitor. RT placed the pt on BiPAP, pt
removed the BiPAP two times within the hour. RT refusing BiPAP overnight, despite education, RT aware. Purewick in place at patients request. Pt has MASD to groin abdomen area and b/l breasts, desenex and ABD pads placed for moisture absorption.
Moisture barrier applied to buttock and perineal area. Call dickerson within reach.
[2024-08-21] VITALS (13 sets, daily range): BP systolic 117–168; BP diastolic 41–99; PULSE 2–78; BMI 39.2
[2024-08-21 00:11] LABS: Troponin I 0.186 ng/ml
--- NOTE | 2024-08-21 03:13 | PTCARENOTE ---
Patient ripping off tele leads and biting at pulse ox. Pt stating 'I need to get out of here'. Pt disoriented to place. Attempted to reorient and calm the pt. Pt settled. Bed alarm is on.
[2024-08-21] MEDS: MUCINEX 600 MG PO ×2 (04:54→17:09)
[2024-08-21] MEDS: SYNTHROID 100 MCG PO (04:54)
[2024-08-21] MEDS: FLOVENT 44 MCG INHALER 2 PUFF INH ×2 (06:23→18:09)
[2024-08-21] MEDS: DUONEB 3 ML INH ×4 (06:23→18:08)
[2024-08-21 06:30] LABS: Blood Urea Nitrogen 52 mg/dl (7-17); Calcium 8.9 mg/dl (8.4-10.2); Carbon Dioxide 29 mmol/L (22-30); Chloride 110 mmol/L (98-107); Estimated Creatinine Clearance 26 ml/min; Glucose 233 mg/dl (70-99); Magnesium 2.5 mg/dl (1.6-2.3); Potassium 4.8 mmol/L (3.5-5.1); Sodium 143 mmol/L (135-145); eGFR 31.02
[2024-08-21 06:46] LABS: Troponin I 0.160 ng/ml
[2024-08-21 07:59] LABS: Glucose - Point of Care 227 mg/dl (70-99)
--- NOTE | 2024-08-21 08:13 | PTCARENOTE ---
Assumed care of patient this AM. It was reported from night RN that patient did not wear BIPAP overnight. Patient had ripped the mask of overnight and refused to wear BIPAP. Patient was educated several times that this was the tx that she needs
to get better. Currently patient has n/c at 3L with pulse ox92%-95%. VS stable,afebrile. SR on monitor with PVC'S. Bed alarm on. Call dickerson in reach.
--- NOTE | 2024-08-21 08:35 | W.PN.HOSP.TC ---
Today's Communication/Plan
-
Add doxycycline
Await echo
Continue nebulizer treatments
Continue Mucinex
Encourage out of bed
Assessment / Plan
Assessment / Plan
89-year-old female with shortness of breath. At [facility] her pulse ox was found to be low. Son also felt that she has been getting her medicines confused and not taking them properly. She has an aide who stays with her and notes that she has
been more tired and confused.
CVS: S1-S2 normal, SM at apex and AA
Chest: Coarse breath sounds, cough
Abdomen: Soft, NT / Bowel sounds present
Extremities: No edema
EKG-sinus rhythm, left axis deviation, RBBB
# Acute hypoxic and acute on chronic hypercapnic respiratory failure likely secondary to CHF and component of COPD exacerbation
Patient was started on BiPAP in the ER
ABG shows primary respiratory acidosis with secondary metabolic acidosis
Continue BiPAP at bedtime
# Acute on chronic HFpEF continue IV Lasix
Check echo
On Bumex 0.5 mg p.o. twice daily as outpatient
# Chronic CO2 retention suspected per pulmonary note
Continue BiPAP at night
continue DuoNebs
Add doxycycline for acute bronchitis
On Arnuity Ellipta, ipratropium bromide, levalbuterol, montelukast as outpatient
# Acute TME likely secondary to above-resolving
# Elevated troponin-likely nonischemic myocardial injury secondary to CHF
Check echo
# Valvular heart disease-mild to moderate mitral stenosis, mild MR, moderate AAS, trace AI
# Hypertension-continue amlodipine
# Diabetes-hemoglobin A1c-8.8
Continue linagliptin Farxiga, Accu-Cheks and sliding scale coverage(moderate)
# Hyperlipidemia-continue statin
# Hypothyroidism-continue levothyroxine TSH noted. Repeat in 6 weeks as outpatient.
# Right BBB
# Generalized weakness/ambulatory dysfunction with history of fall
# Acute kidney injury on CKD stage III-monitor with diuresis.
# GERD-continue PPI
# History of left lower extremity DVT-continue Eliquis
# Anxiety and depression
# Spinal stenosis with gait abnormality/neuropathy-continue gabapentin
# Sleep apnea-patient was discharged to rehab February 2023 with a BiPAP. She had difficulty using it there therefore came back to [facility] without one.
# IBS
# Obesity with a BMI of 39
# DVT prophylaxis-Eliquis
# DNR
Spoke to patient's son and updated in detail. He stated that patient had 2 falls in the past few days at [facility] and they arranged for 24-hour care. He is also not sure if she was taking her medicines that much might have been some confusion
about her not being able to take her medicines.
Part of this note was created using voice recognition system. Occasional wrong word or��sound alike� substitutions may have inadvertently occurred due to the inherent limitations of voice recognition software. If noted kindly bring it to my
attention for correction.
Anticipated Discharge: > 48 hours
Subjective/Interval History
-
Date of Service: August 21, 2024
Objective Data
-
Labs:
Laboratory Results
08/21/24
05:52
Sodium 143
Potassium 4.8
Chloride 110 H
Carbon Dioxide 29
BUN 52 H
Creatinine 1.6 H
Glucose 233 H
Calcium 8.9
Vital Signs:
Vital Signs
Temp Pulse Resp BP Pulse Ox
98.6 F 65 30 121/43 94
08/21/24 07:56 08/21/24 08:00 08/21/24 08:00 08/21/24 08:00 08/21/24 08:00
I&O
08/20/24 08/21/24 08/22/24
06:59 06:59 06:59
Intake Total 480 / 480
Output Total 200 / 200
Balance 280 / 280
[2024-08-21 08:53] LABS: Glycohemoglobin (HgbA1c) 8.8 % (4.0-5.6)
--- NOTE | 2024-08-21 09:31 | W.PN.PUL3 ---
Today's Communication / Plan
-
Refused BIPAP, ABGs not improving from 08/20
She is not sure if she would continue therapy in the future, we discussed GOC/hospice
She feels she would rather ' quickly'
I would consider consult to hospice if she does not wish to pursue further treatment, this discussion was witnessed by RN
Defer to team to follow up on GOC discussions
Assessment
-
89-year-old female with history of heart failure, hypoxic and hypercarbic respiratory in the past, pulm hypertension, right bundle branch block, DVT/PE presents with increased weakness, shortness of breath, confusion. Patient also notes she fell 2
weeks ago when she hit the bathtub, denied loss of consciousness or head trauma. She admits to hitting her left flank. Admitted for hypoxic and hypercarbic respiratory failure requiring BiPAP. We are asked to comment on pulmonary process
Acute hypoxic respiratory insufficiency, requiring BiPAP--refusing
Suspected chronic hypercarbia based on VBG
Suspected acute heart failure
Diastolic dysfunction
Moderate aortic stenosis per records
Normal EF per echo in February 2023
Right bundle branch block, per EKG
Gait dysfunction, recent fall 2 weeks ago
Acute renal insufficiency, creatinine 1.8
Baseline 1.3-1.6
Hyperglycemia
Conditions present prior to admission
History of recurrent admission for TME
Recurrent UTI, E. coli
Coronary disease
Valvular disease, aortic stenosis/mitral stenosis
Asthma/COPD
Hypothyroidism
Hypertension/hyperlipidemia
[facility] resident
DNR
Plan/recommendations
At this time, patient appears to have stabilized
Acute hypercarbic respiratory failure however this is a VBG.
ABG confirms mild hypercarbia, pH 7.29. Similar to prior ventilatory abnormality in February 2023 at which time she was here for hypoxic and hypercarbic respiratory failure
Studies reviewed: 02/2023-- 7.
ABGs 08/20/24--7. -> 7. (persistent)
Patient is presently off her BiPAP, she has been refusing
Would continue BiPAP tonight and as needed--she understands risks of refusing treatment but states she does not wish to continue going on
We discussed GOC this AM, she feels she may be ready for hospice if not improving
We would need to obtain set up at home but not sure if she would comply
Last admission in 2023 for similar, instructed to FU as OP for sleep eval, did not pursue
Avoid narcotic therapy, sedation
Head of bed elevated
Remains on outpatient medications, including Eliquis.
Patient currently receiving Lasix twice daily
Follow urine output, creatinine
Follow electrolytes
Hyperglycemia noted. Follow blood sugars.
Currently on insulin sliding scale, continue outpatient medications
PT/OT, OOB as able
DNR status noted
Reviewed with nursing
GOC discussions, consideration for hospice if she declines treatment
Diagnostic Data
CXR 08/20/24- No acute disease of the chest considering the limited inspiration
02/21/23- Improved aeration left lower lung field. Probable residual mild pneumonia
ECHO 02/15/23- Normal biventricular size and systolic function without regional wall motion abnormality. Mild to moderate mitral stenosis. Mild mitral regurgitation (may be underestimated due to acoustic shadowing). Moderate aortic stenosis. Trace
aortic regurgitation. Compared to previous echo 05/27/21, aortic stenosis now moderate from mild to moderate on the prior study.
Total time spent today was 54 minutes for this encounter. Time includes reviewing laboratory test/imaging results, reviewing pertinent medical records, obtaining and reviewing medical history, performing an appropriate exam, ordering medications,
tests and procedures. Time also includes documentation of this encounter, coordinating patient care and communicating with other healthcare professionals. Total time does not include separately billed tests performed on this date of service.
Subjective Data
-
Date of Service:
Date of Service: August 21, 2024
Chief Complaint: Pulmonary Follow Up
Subjective:
Has been refusing PAP therapy
She is not sure if she wants to keep receiving treatment
Objective Data
Data Reviewed
Vital Signs / I&O / Oxygen:
Vital Signs
Temp Pulse Resp BP Pulse Ox
98.6 F 65 30 121/43 94
08/21/24 07:56 08/21/24 08:00 08/21/24 08:00 08/21/24 08:00 08/21/24 08:00
Intake and Output
08/20/24 08/21/24 08/22/24
06:59 06:59 06:59
Intake Total 480 / 480
Output Total 200 / 200
Balance 280 / 280
SaO2 94
Nasal Cannula flow liters per 3
minute
Physical Exam
General: Comfortable and Other (NAD, obese, deconditioned appearing)
HEENT: Normocephalic, Anicteric and Moist Mucous Membranes
Cardiovascular: S1-S2, Regular Rhythm and Peripheral Edema
Respiratory: Crackles (decreased overall) and Non-Labored Respirations
GI: Soft, Non Distended and Non Tender
Neurology: Awake, Alert, Oriented and No Motor Deficits
Skin: Warm and Dry
Labs/Micro/Reports
Lab Data
08/20/24 09:50
08/21/24 05:52
Laboratory Results
08/20/24
16:33
pH 7.29 L
pCO2 62 H
pO2 130 H
HCO3 29.8 H
O2 Delivery Level
[2024-08-21] MEDS: NOVOLOG FLEXPEN-LOW RESISTANCE 3 UNITS SC (09:35)
[2024-08-21] MEDS: NOVOLOG FLEXPEN-MODERATE RESISTANCE SC (09:45)
[2024-08-21] MEDS: FARXIGA 10 MG PO (10:09)
[2024-08-21] MEDS: PROTONIX 40 MG PO (10:09)
[2024-08-21] MEDS: NEURONTIN 300 MG PO ×2 (10:09→19:45)
[2024-08-21] MEDS: LIPITOR 20 MG PO (10:09)
[2024-08-21] MEDS: NORVASC 10 MG PO (10:09)
[2024-08-21] MEDS: SENOKOT 8.6 MG PO (10:09)
[2024-08-21] MEDS: ELIQUIS 5 MG PO ×2 (10:09→19:45)
[2024-08-21] MEDS: LASIX 40 MG IV ×2 (10:10→17:10)
[2024-08-21] MEDS: TYLENOL 1000 MG PO ×3 (10:10→21:06)
[2024-08-21] MEDS: DESENEX/MITRAZOL/ZEASORB 1 APPLIC TOPICAL ×2 (10:11→21:08)
--- NOTE | 2024-08-21 10:43 | W.PN.CD ---
Addendum entered and electronically signed by Vitaliy Francisco MD 08/21/24 11:04:
I saw and evaluated the patient. I reviewed the resident�s note and agree with findings and plan as documented in the resident�s note.
89-year-old woman with history of moderate aortic stenosis ( Mean gradient 22 mmHg by echo 02/2023 )DVT/PE on Eliquis, COPD RBBB CKD and anemia. Patient presented with respiratory insufficiency due to combination of COPD and suspected HFpEF.
Currently comfortable on 2 L nasal cannula. Creatinine improved from 1.8-1.6 with diuresis. Weight trending down
-Continue diuresis with close monitoring of renal function. Consider transition to oral diuretic tomorrow.
-Follow-up echo to reassess left ventricular function and aortic stenosis
-Troponin peak 0.186 likely non-WA troponin related to COPD and CHF. Await echo
-Treatment of COPD as directed by primary team
Original Note:
Today's Communication / Plan
-
Cont Lasix 40mg IV BID today
Likely transition to home bumex 0.5 BID tomorrow
Impression / Plan
-
89-year-old female with past medical history of prior admission here in 02/2023 for acute hypoxemic and hypercarbic respiratory failure, heart failure with preserved ejection fraction, pulmonary hypertension, right bundle branch block, essential
hypertension, DVT and presumed PE on Eliquis, CKD, anemia of chronic disease, hypothyroidism, hyperlipidemia, essential tremor, spinal stenosis, gait abnormality and peripheral neuropathy presented to the ER due to increasing weakness, confusion,
lack of energy.
Acute hypoxic and hypercapnic respiratory failure likely combination of COPD exacerbation and CHF exacerbation.
-Agree with BiPap at bed time- wean O2 as able
-ABG primary resp acidosis with secondary metabolic acidosis
-On neb treatment
-Appreciate pulmonology
Acute on chronic HFpEF exacerbation
-last echo 02/15/23 LVEF 55-60%, mod aortic stenosis, pulm artery pressure 38mmg
-Repeat echo pending
-Agree with Lasix 40 BID for today - likely transition to home bumex 0.5 PO BID tomorrow as does not appear in significant volume overload
-Cont farxiga
-Monitor I&O, daily weights, fluid restriction and low Na diet
Troponin elevation - likely demand ischemia from COPD exacerbation
-EKG non-ischemic
-Cont Bipap
-Duonebs
-Troponin peak at 0.186
Valvular disease - mod , mild MR, MS
-moderate aortic stenosis
-Repeat echo pending
RBBB
-EKG non-ischemic
HTN
-Currently hypertensive
-Amlodipine with hold parameters
Hx DVT
-On eliquis 5 BID
DVT on eliquis
DNR
Subjective: Patient appears confused. She denies any chest pain or heart palpitations. She is currently in 3L O2.
Physical Exam
Vital Signs/Labs
Vital Signs
Temp Pulse Resp BP Pulse Ox
98.6 F 83 25 160/61 93
08/21/24 07:56 08/21/24 10:00 08/21/24 10:00 08/21/24 10:00 08/21/24 10:00
08/20/24 08/21/24 08/22/24
06:59 06:59 06:59
Actual Weight 94 kg
08/20/24 09:50
08/21/24 05:52
Magnesium 2.5 mg/dl (1.6-2.3) H 08/21/24 05:52
Free T4 0.93 ng/dl (0.78-2.19) 08/21/24 05:53
08/20/24
11:06
Izz-S-Tehwncehbsu Pept 45524
LAB Results
08/20/24 08/20/24 08/20/24
11:06 16:39 23:23
Troponin I 0.107 H* 0.155 H* D 0.186 H*
08/21/24
05:53
Troponin I 0.160 H*
Physical Exam
Constitutional: Confusion
Cardiovascular: Rhythm & rate is regular, Pedal edema is absent and JVD pressure is normal
Respiratory: Crackles Absent
GI: Soft, Non tender and Normal bowel sounds
Data Reviewed
-
Date of Service: August 21, 2024
[2024-08-21] MEDS: VIBRAMYCIN 100 MG PO ×2 (11:36→19:45)
[2024-08-21 11:59] LABS: Vitamin B12 820 pg/ml (239-931)
[2024-08-21] MEDS: NOVOLOG FLEXPEN-LOW RESISTANCE SC (12:40)
[2024-08-21 12:41] LABS: Glucose - Point of Care 324 mg/dl (70-99)
[2024-08-21 13:23] LABS: B.E. 4.4 mmol/L; HCO3 31.9 mmol/L (21-28); O2 Saturation % 94.2 % (94-98); PCO2 62 mmHg (32-35); PO2 60 mmHg (83-108)
[2024-08-21] MEDS: NOVOLOG FLEXPEN-MODERATE RESISTANCE 7 UNITS SC (13:44)
--- NOTE | 2024-08-21 16:25 | PTCARENOTE ---
Attempted to put patient back on BIPAP for a nap but patient could not tolerate. Repeat ABG obtained today. Patient has intermittent confusion. Patient had to BM's in bedpan today. VS stable.
[2024-08-21 17:06] LABS: Glucose - Point of Care 225 mg/dl (70-99)
[2024-08-21] MEDS: VITAMIN D3 (cholecalciferol) 25 MCG PO (17:09)
[2024-08-21] MEDS: SINGULAIR 10 MG PO (17:10)
[2024-08-21] MEDS: FLUSH (NSS) 2 FLUSH IV (17:10)
[2024-08-21] MEDS: NOVOLOG FLEXPEN-MODERATE RESISTANCE 3 UNITS SC (17:12)
[2024-08-21] MEDS: NOVOLOG FLEXPEN 4 UNITS SC (17:13)
--- NOTE | 2024-08-21 17:13 | CM ---
Tasha IV. This CM spoke with liaison at [facility] where patient resides with daily caregivers: initially was 6 hr /day, SURVEY COORDINATOR was increased to 24/7. Liaison reported that she spoke with son and he is attempting to have patient placed in a higher
level of care, perhaps assisted living. Discharge POC: TBD [facility] ith 24/7 care vs AL vs SNF/LTC.
--- NOTE | 2024-08-21 18:45 | PTCARENOTE ---
Patient will be transferred to 4th floor room 414 bed 2. Report given to Carmela NUGENT.
[2024-08-21] MEDS: SENOKOT PO (21:03)
[2024-08-21 21:58] LABS: Glucose - Point of Care 257 mg/dl (70-99)
[2024-08-22] VITALS (8 sets, daily range): BP systolic 108–152; BP diastolic 46–71; PULSE 2–86; BMI 40.4
--- NOTE | 2024-08-22 02:44 | PTCARENOTE ---
Patient transferred from IMU via stretcher. [id number]. Patient insists on purewick despite multiple RNs educated on UTI and infection. Denied pain at current time. Bed alarm applied. Oriented to unit. Call dickerson within reach.
[2024-08-22] MEDS: SYNTHROID 100 MCG PO (05:12)
[2024-08-22] MEDS: MUCINEX 600 MG PO ×2 (05:12→15:12)
[2024-08-22 07:15] LABS: Glucose - Point of Care 253 mg/dl (70-99)
[2024-08-22] MEDS: NOVOLOG FLEXPEN 4 UNITS SC ×2 (07:23→12:44)
[2024-08-22] MEDS: NOVOLOG FLEXPEN-MODERATE RESISTANCE 5 UNITS SC (07:23)
[2024-08-22] MEDS: FARXIGA 10 MG PO (07:24)
[2024-08-22] MEDS: LIPITOR 20 MG PO (07:24)
[2024-08-22] MEDS: SENOKOT 8.6 MG PO ×2 (07:24→19:50)
[2024-08-22] MEDS: NEURONTIN 300 MG PO ×2 (07:24→19:50)
[2024-08-22] MEDS: VIBRAMYCIN 100 MG PO ×2 (07:24→19:50)
[2024-08-22] MEDS: NORVASC 10 MG PO (07:24)
[2024-08-22] MEDS: PROTONIX 40 MG PO (07:24)
[2024-08-22] MEDS: TYLENOL 1000 MG PO ×2 (07:24→21:55)
[2024-08-22] MEDS: ELIQUIS 5 MG PO ×2 (07:24→19:50)
[2024-08-22] MEDS: TYLENOL PO (07:25)
[2024-08-22] MEDS: DESENEX/MITRAZOL/ZEASORB 1 APPLIC TOPICAL ×2 (07:25→19:54)
[2024-08-22] MEDS: LASIX 40 MG IV (07:26)
--- NOTE | 2024-08-22 07:56 | W.PN.CD ---
Addendum entered and electronically signed by Vitaliy Francisco MD 08/22/24 11:17:
I saw and evaluated the patient. I reviewed the resident�s note and agree with findings and plan as documented in the resident�s note.
Patient seen and examined agree with note below. Patient with COPD on chronic O2. At times refusing BiPAP. Renal function stable. At this point patient's respiratory issues appear primarily pulmonary not clear that she requires additional
diuresis with transition to oral diuretic. Also appears goals of care are being discussed between patient primary team and pulmonary
Original Note:
Today's Communication / Plan
-
Transition to home dose bumex 0.5 BID
Continued goals of care discussions
Impression / Plan
-
89-year-old female with past medical history of prior admission here in 02/2023 for acute hypoxemic and hypercarbic respiratory failure, heart failure with preserved ejection fraction, pulmonary hypertension, right bundle branch block, essential
hypertension, DVT and presumed PE on Eliquis, CKD, anemia of chronic disease, hypothyroidism, hyperlipidemia, essential tremor, spinal stenosis, gait abnormality and peripheral neuropathy presented to the ER due to increasing weakness, confusion,
lack of energy.
Acute hypoxic and hypercapnic respiratory failure likely combination of COPD exacerbation and CHF exacerbation.
-Agree with BiPap at bed time- wean O2 as able
-ABG primary resp acidosis with secondary metabolic acidosis
-On neb treatment
-Appreciate pulmonology
Acute on chronic HFpEF exacerbation
-Echo 08/21/24 LVEF 55-60%, Severe L atrial enlargement, moderate MS, mod- severe aortic stenosis (mean 26 mmHg and JAIDA 0.9 to 1 cm cm2), mod pasp 40-45 mmhg.
-Cr 1.6 appears at baseline
-Transition to home bumex 0.5 PO BID
-Cont farxiga
-Monitor I&O, daily weights, fluid restriction and low Na diet
Troponin elevation - likely demand ischemia from COPD and CHF exacerbation
-Troponin peak at 0.186
Valvular disease - mod , mild MR, MS
-moderate MS, mod- severe aortic stenosis (mean 26 mmHg and JAIDA 0.9 to 1 cm cm2), mod pasp 40-45 mmhg.
Long QTc
-08/21/24 QT/QTc 404/483
-Avoid QT prolonging medications
RBBB
-EKG non-ischemic
HTN
-Currently hypertensive
-Amlodipine with hold parameters
Diabetes II
-HgA1c 8.8
-On faxiga and sitagliptin
-On aspart 4 units sc as and SSI
-Appreciate primary team
Hx DVT/PE
-On eliquis 5 BID
DVT on eliquis
DNR
Subjective: Patient appears confused. She denies any chest pain or heart palpitations. She was not compliant with her BiPap overnight and O2 was off this am. After putting her O2 back on, she stated she 'does not have to put herself through this'
and she may want to go home and live out the rest of her life comfortably. She 'has lived a long good life' and is 'tired of coming in and out of the hospital.'
Physical Exam
Vital Signs/Labs
Vital Signs
Temp Pulse Resp BP Pulse Ox
98.7 F 92 18 145/68 94
08/22/24 03:12 08/22/24 03:12 08/22/24 03:12 08/22/24 03:12 08/22/24 03:12
08/21/24 08/22/24 08/23/24
06:59 06:59 06:59
Actual Weight 94 kg 96.87 kg
08/20/24 09:50
Magnesium 2.5 mg/dl (1.6-2.3) H 08/21/24 05:52
Free T4 0.93 ng/dl (0.78-2.19) 08/21/24 05:53
08/20/24
11:06
Fhs-S-Vdfwxwsrugt Pept [id number]
LAB Results
08/20/24 08/20/24 08/20/24
11:06 16:39 23:23
Troponin I 0.107 H* 0.155 H* D 0.186 H*
08/21/24
05:53
Troponin I 0.160 H*
Physical Exam
Constitutional: No acute distress
Cardiovascular: Rhythm & rate is regular, Pedal edema is absent, JVD pressure is normal and Systolic murmur present
Respiratory: Other (decreased lung sounds bilaterally with end expiratory wheezing)
GI: Soft, Distention absent, Non tender and Normal bowel sounds
Data Reviewed
-
Date of Service: August 22, 2024
[2024-08-22] MEDS: FLOVENT 44 MCG INHALER 2 PUFF INH ×2 (08:07→19:51)
[2024-08-22] MEDS: DUONEB 3 ML INH ×4 (08:07→19:51)
[2024-08-22 09:12] LABS: Blood Urea Nitrogen 56 mg/dl (7-17); Calcium 9.0 mg/dl (8.4-10.2); Carbon Dioxide 28 mmol/L (22-30); Chloride 108 mmol/L (98-107); Estimated Creatinine Clearance 26 ml/min; Glucose 256 mg/dl (70-99); Potassium 4.5 mmol/L (3.5-5.1); Sodium 141 mmol/L (135-145); eGFR 31.02
--- NOTE | 2024-08-22 09:37 | W.PN.PUL3 ---
Today's Communication / Plan
-
Still declining PAP and outpatient set up
We discussed hospice evaluation since this would inevitably cause recurrent hospitalizations/admission/risk for vent failure/adverse events
Consult placed--patient in agreement
Await decision-making
Assessment
-
89-year-old female with history of heart failure, hypoxic and hypercarbic respiratory in the past, pulm hypertension, right bundle branch block, DVT/PE presents with increased weakness, shortness of breath, confusion. Patient also notes she fell 2
weeks ago when she hit the bathtub, denied loss of consciousness or head trauma. She admits to hitting her left flank. Admitted for hypoxic and hypercarbic respiratory failure requiring BiPAP. We are asked to comment on pulmonary process
Acute hypoxic respiratory insufficiency, requiring BiPAP--refusing
Suspected chronic hypercarbia based on VBG
Suspected acute heart failure
Diastolic dysfunction
Moderate aortic stenosis per records
Normal EF per echo in February 2023
Right bundle branch block, per EKG
Gait dysfunction, recent fall 2 weeks ago
Acute renal insufficiency, creatinine 1.8
Baseline 1.3-1.6
Hyperglycemia
Conditions present prior to admission
History of recurrent admission for TME
Recurrent UTI, E. coli
Coronary disease
Valvular disease, aortic stenosis/mitral stenosis
Asthma/COPD
Hypothyroidism
Hypertension/hyperlipidemia
[facility] resident
DNR
Plan/recommendations
At this time, patient appears to have stabilized
Acute hypercarbic respiratory failure however this is a VBG.
ABG confirms mild hypercarbia, pH 7.29. Similar to prior ventilatory abnormality in February 2023 at which time she was here for hypoxic and hypercarbic respiratory failure
Studies reviewed: 02/2023-- 7.33
ABGs 08/20/24-- -> (persistent)
Patient is presently off her BiPAP, she has been refusing
Would continue BiPAP tonight and as needed--she understands risks of refusing treatment but states she does not wish to continue going on
We discussed GOC this AM, she feels she may be ready for hospice if not improving
We would need to obtain set up at home but not sure if she would comply--she notes she would not today
Last admission in 2023 for similar, instructed to FU as OP for sleep eval, did not pursue
She is in agreement to hospice consult, will place
Avoid narcotic therapy, sedation
Head of bed elevated
Remains on outpatient medications, including Eliquis.
Patient currently receiving Lasix twice daily
Follow urine output, creatinine
Follow electrolytes
Hyperglycemia noted. Follow blood sugars.
Currently on insulin sliding scale, continue outpatient medications
PT/OT, OOB as able
DNR status noted
Reviewed with nursing
GOC discussions, consideration for hospice if she declines treatment
Diagnostic Data
CXR 08/20/24- No acute disease of the chest considering the limited inspiration
02/21/23- Improved aeration left lower lung field. Probable residual mild pneumonia
ECHO 02/15/23- Normal biventricular size and systolic function without regional wall motion abnormality. Mild to moderate mitral stenosis. Mild mitral regurgitation (may be underestimated due to acoustic shadowing). Moderate aortic stenosis. Trace
aortic regurgitation. Compared to previous echo 05/27/21, aortic stenosis now moderate from mild to moderate on the prior study.
Total time spent today was 51 minutes for this encounter. Time includes reviewing laboratory test/imaging results, reviewing pertinent medical records, obtaining and reviewing medical history, performing an appropriate exam, ordering medications,
tests and procedures. Time also includes documentation of this encounter, coordinating patient care and communicating with other healthcare professionals. Total time does not include separately billed tests performed on this date of service.
Subjective Data
-
Date of Service:
Date of Service: August 22, 2024
Chief Complaint: Pulmonary Follow Up
Subjective:
Still refusing PAP therapy
She feels she would not comply as OP
Objective Data
Data Reviewed
Vital Signs / I&O / Oxygen:
Vital Signs
Temp Pulse Resp BP Pulse Ox
97.7 F 72 18 147/66 93
08/22/24 08:09 08/22/24 08:12 08/22/24 08:12 08/22/24 08:09 08/22/24 08:12
Intake and Output
08/21/24 08/22/24 08/23/24
06:59 06:59 06:59
Intake Total 480 / 480 960 / 960
Output Total 200 / 200 1120 / 1120
Balance 280 / 280 -160 / -160
SaO2 93
Nasal Cannula flow liters per 2
minute
Physical Exam
General: Comfortable and Other (NAD, obese, deconditioned appearing)
HEENT: Normocephalic, Anicteric and Moist Mucous Membranes
Cardiovascular: S1-S2, Regular Rhythm and Peripheral Edema
Respiratory: Crackles (decreased overall) and Non-Labored Respirations
GI: Soft, Non Distended and Non Tender
Neurology: Awake, Alert, Oriented and No Motor Deficits
Skin: Warm and Dry
Labs/Micro/Reports
Lab Data
08/20/24 09:50
08/22/24 07:28
Laboratory Results
08/21/24
13:09
pH 7.32 L
pCO2 62 H
pO2 60 L
HCO3 31.9 H
O2 Delivery Level
[2024-08-22 12:38] LABS: Glucose - Point of Care 184 mg/dl (70-99)
[2024-08-22] MEDS: NOVOLOG FLEXPEN-MODERATE RESISTANCE 1 UNITS SC (12:44)
--- NOTE | 2024-08-22 12:51 | W.PN.HOSP.TC ---
Today's Communication/Plan
-
Continue doxycycline
Nebulizer treatments
Wean oxygen as tolerated
Hospice has been consulted per pulmonary await patient and family decision
Encourage out of bed and PT
Assessment / Plan
Assessment / Plan
89-year-old female with shortness of breath. At [facility] her pulse ox was found to be low. Son also felt that she has been getting her medicines confused and not taking them properly. She has an aide who stays with her and notes that she has
been more tired and confused.
CVS: S1-S2 normal, SM at apex and AA
Chest: Coarse breath sounds, cough
Abdomen: Soft, NT / Bowel sounds present
Extremities: No edema
EKG-sinus rhythm, left axis deviation, RBBB
Echo-normal biventricular size and systolic function without regional wall motion abnormality. Severe LA enlargement, moderate MS, moderate to severe , PA pressure 40 to 45 mmHg.
# Acute hypoxic and acute on chronic hypercapnic respiratory failure likely secondary to CHF and component of COPD exacerbation
Patient was started on BiPAP in the ER
ABG shows primary respiratory acidosis with secondary metabolic acidosis
Continue BiPAP at bedtime
Patient refusing to wear BiPAP per discussion with pulmonary.
Patient also indicated to pulmonary that she wants to quickly rather than go on these.
Pulmonary consulted hospice
# Acute on chronic HFpEF
Echo as above
IV Lasix changed back to Bumex 0.5 mg p.o. twice daily which is her outpatient dose
# Chronic CO2 retention suspected per pulmonary note
Continue BiPAP at night
continue DuoNebs
Added doxycycline for acute bronchitis
On Arnuity Ellipta, ipratropium bromide, levalbuterol, montelukast as outpatient
# Acute TME likely secondary to above-resolving
# Elevated troponin-likely nonischemic myocardial injury secondary to CHF
# Valvular heart disease-mild to moderate mitral stenosis, mild MR, moderate AAS, trace AI
# Hypertension-continue amlodipine
# Diabetes-hemoglobin A1c-8.8
Continue linagliptin Farxiga, Accu-Cheks and sliding scale coverage(moderate)
Blood sugars seem to be running high
I do not think patient will be able to take insulin at home
Add Prandin
# Hyperlipidemia-continue statin
# Hypothyroidism-continue levothyroxine TSH noted. Repeat in 6 weeks as outpatient.
# Right BBB
# Generalized weakness/ambulatory dysfunction with history of fall
# Acute kidney injury on CKD stage III-monitor with diuresis.
# GERD-continue PPI
# History of left lower extremity DVT-continue Eliquis
# Anxiety and depression
# Spinal stenosis with gait abnormality/neuropathy-continue gabapentin
# Sleep apnea-patient was discharged to rehab February 2023 with a BiPAP. She had difficulty using it there therefore came back to [facility] without one.
# IBS
# Obesity with a BMI of 39
# DVT prophylaxis-Eliquis
# DNR
Discussed with pulmonary today.
Await patient and family decision regarding hospice
08/21/2024-spoke to patient's son and updated in detail. He stated that patient had 2 falls in the past few days at [facility] and they arranged for 24-hour care. He is also not sure if she was taking her medicines that much might have been some
confusion about her not being able to take her medicines.
Part of this note was created using voice recognition system. Occasional wrong word or��sound alike� substitutions may have inadvertently occurred due to the inherent limitations of voice recognition software. If noted kindly bring it to my
attention for correction.
Anticipated Discharge: 24 - 48 hours
Subjective/Interval History
-
Date of Service: August 22, 2024
Objective Data
-
Labs:
Laboratory Results
08/22/24
07:28
Sodium 141
Potassium 4.5
Chloride 108 H
Carbon Dioxide 28
BUN 56 H
Creatinine 1.6 H
Glucose 256 H
Calcium 9.0
Vital Signs:
Vital Signs
Temp Pulse Resp BP Pulse Ox
97.8 F 74 18 134/58 93
08/22/24 12:05 08/22/24 12:05 08/22/24 12:05 08/22/24 12:05 08/22/24 12:05
I&O
08/21/24 08/22/24 08/23/24
06:59 06:59 06:59
Intake Total 480 / 480 960 / 960
Output Total 200 / 200 1120 / 1120
Balance 280 / 280 -160 / -160
[2024-08-22] MEDS: JANUVIA 25 MG PO (12:54)
[2024-08-22] MEDS: BUMEX 0.5 MG PO (15:11)
[2024-08-22 16:35] LABS: Glucose - Point of Care 236 mg/dl (70-99)
[2024-08-22] MEDS: NOVOLOG FLEXPEN-MODERATE RESISTANCE 3 UNITS SC (16:37)
[2024-08-22] MEDS: PRANDIN 2 MG PO (16:37)
[2024-08-22] MEDS: SINGULAIR 10 MG PO (16:38)
--- NOTE | 2024-08-22 17:30 | HOSPNOTE ---
Hospice referral received. Called and spoke to son Willie. He was taken back by the call and stated this was the first time he was hearing about hospice. He said that he understood if his mom did not wear her BIPAP at then she would be a candidate
for hospice. He was hopeful that she would comply and wear the BIPAP. He plans to see and speak to his mom this evening. Will reach out tomorrow morning to follow up after their conversation. More information to follow. CM updated.
[2024-08-22 21:10] LABS: Glucose - Point of Care 569 mg/dl (70-99)
[2024-08-22 21:33] LABS: Glucose 339 mg/dl (70-99)
--- NOTE | 2024-08-22 23:40 | PTCARENOTE ---
Pt refused one time order of 5 units of insulin. She then became agitated and took off her heart monitor. 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
disoriented conversation and wouldn't explain why she was so upset. She took off her oxygen and was also trying to take out her IV. She was also saying that she thinks she's going to tonight and if she does it's on us. Tried to explain that we
are here to help her.
Resp informed me that he had tried to put her Bipap on at 2300 but she kept pulling at it and wanted it off after 7 mins. Respiratory was able to put on her Bipap at 2330. Pulse ox with 2L Bipap 93%. Axillary temp 99.7, BP 130/46 HR 77 RR 25. SALES SERVICE ASSISTANT
notified. RN sitting in room with patient. She is currently calm and no longer pulling on equipment.
[2024-08-23] VITALS (11 sets, daily range): BP systolic 93–134; BP diastolic 44–84; PULSE 2–61; O2SAT 95; BMI 40.7
[2024-08-23] MEDS: SYNTHROID 100 MCG PO (05:30)
[2024-08-23] MEDS: MUCINEX 600 MG PO (05:30)
--- NOTE | 2024-08-23 05:41 | PTCARENOTE ---
Pt slept with Bipap from [id number]. There were a few occasions where she pulled at the tubing, but she was able to return to sleep with it on.
[2024-08-23 06:04] LABS: Blood Urea Nitrogen 68 mg/dl (7-17); Calcium 9.1 mg/dl (8.4-10.2); Carbon Dioxide 34 mmol/L (22-30); Chloride 107 mmol/L (98-107); Estimated Creatinine Clearance 20 ml/min; Glucose 210 mg/dl (70-99); Potassium 4.6 mmol/L (3.5-5.1); Sodium 142 mmol/L (135-145); eGFR 22.38
[2024-08-23] MEDS: DUONEB 3 ML INH ×4 (07:07→19:37)
[2024-08-23] MEDS: FLOVENT 44 MCG INHALER 2 PUFF INH ×2 (07:07→19:37)
[2024-08-23 07:54] LABS: Glucose - Point of Care 213 mg/dl (70-99)
[2024-08-23] MEDS: NEURONTIN 300 MG PO ×2 (08:00→22:34)
[2024-08-23] MEDS: PROTONIX 40 MG PO (08:00)
[2024-08-23] MEDS: TYLENOL 1000 MG PO ×2 (08:00→22:34)
[2024-08-23] MEDS: VIBRAMYCIN 100 MG PO ×2 (08:00→22:35)
[2024-08-23] MEDS: PRANDIN 2 MG PO ×2 (08:00→11:39)
[2024-08-23] MEDS: JANUVIA 25 MG PO (08:00)
[2024-08-23] MEDS: LIPITOR 20 MG PO (08:00)
[2024-08-23] MEDS: BUMEX 0.5 MG PO (08:00)
[2024-08-23] MEDS: SENOKOT 8.6 MG PO ×2 (08:00→22:34)
[2024-08-23] MEDS: ELIQUIS 5 MG PO ×2 (08:01→22:34)
[2024-08-23] MEDS: FARXIGA 10 MG PO (08:01)
[2024-08-23] MEDS: NORVASC 10 MG PO (08:01)
[2024-08-23] MEDS: VITAMIN D3 (cholecalciferol) 25 MCG PO (08:01)
[2024-08-23] MEDS: NOVOLOG FLEXPEN-MODERATE RESISTANCE 3 UNITS SC (08:05)
[2024-08-23] MEDS: DESENEX/MITRAZOL/ZEASORB 1 APPLIC TOPICAL ×2 (08:06→22:35)
--- NOTE | 2024-08-23 08:43 | W.PN.CD ---
Addendum entered and electronically signed by Kiel Gilliam MD 08/23/24 17:23:
I saw and examined the patient.
Dr Treadwell's note was reviewed and I agree with the note.
Comment: Difficult to ascertain volume status, however, given weight up and Cr up will resume diuresis.
Original Note:
Today's Communication / Plan
-
Restart lasix 40 IV BID
Continued goals of care discussions
Impression / Plan
-
89-year-old female with past medical history of prior admission here in 02/2023 for acute hypoxemic and hypercarbic respiratory failure, heart failure with preserved ejection fraction, pulmonary hypertension, right bundle branch block, essential
hypertension, DVT and presumed PE on Eliquis, CKD, anemia of chronic disease, hypothyroidism, hyperlipidemia, essential tremor, spinal stenosis, gait abnormality and peripheral neuropathy presented to the ER due to increasing weakness, confusion,
lack of energy.
Acute hypoxic and hypercapnic respiratory failure likely combination of COPD exacerbation and CHF exacerbation.
-Agree with BiPap at bed time- wean O2 as able
-ABG primary resp acidosis with secondary metabolic acidosis
-On neb treatment
-Appreciate pulmonology
Acute on chronic HFpEF exacerbation
-Echo 08/21/24 LVEF 55-60%, Severe L atrial enlargement, moderate MS, mod- severe aortic stenosis (mean 26 mmHg and JAIDA 0.9 to 1 cm cm2), mod pasp 40-45 mmhg.
-Cr 1.6 increased to 2.1
-Stop home bumex and restart lasix 40mg IV BID with increased weight by 1kg and increased cr
-Cont farxiga
-Monitor I&O, daily weights, fluid restriction and low Na diet
Non-sustained v. tach vs artifact
-Multiple episodes overnight longest lasting 1.5 seconds, however not present on all 4 leads with some notching present making artifact more likely
-K 4.6 and mag 2.2
-Keep K>4
-Keep mag >2
-Cont to monitor tele
Troponin elevation - likely demand ischemia from COPD and CHF exacerbation
-Troponin peak at 0.186
Valvular disease - mod , mild MR, MS
-moderate MS, mod- severe aortic stenosis (mean 26 mmHg and JAIDA 0.9 to 1 cm cm2), mod pasp 40-45 mmhg.
Long QTc
-08/21/24 QT/QTc 404/483
-Avoid QT prolonging medications
RBBB
-EKG non-ischemic
HTN
-Controlled
-Amlodipine with hold parameters
Diabetes II
-HgA1c 8.8
-On faxiga and sitagliptin
-On aspart 4 units sc as and SSI
-Appreciate primary team
Hx DVT/PE
-On eliquis 5 BID
DVT on eliquis
DNR
Subjective: Patient continues to appear confused. Wore her bipap for only part of the night. Ongoing consideration for hospice and palliative care. She states she does not want to keep coming back to the hospital.
Physical Exam
Vital Signs/Labs
Vital Signs
Temp Pulse Resp BP Pulse Ox
98.4 F 81 20 127/51 91
08/23/24 08:01 08/23/24 08:01 08/23/24 08:01 08/23/24 08:01 08/23/24 08:01
08/22/24 08/23/24 08/24/24
06:59 06:59 06:59
Actual Weight 96.87 kg 97.721 kg
08/20/24 09:50
08/23/24 05:10
Magnesium 2.5 mg/dl (1.6-2.3) H 08/21/24 05:52
Free T4 0.93 ng/dl (0.78-2.19) 08/21/24 05:53
08/20/24
11:06
Ciu-B-Gujzatqnkcv Pept 53624
LAB Results
08/20/24 08/20/24 08/20/24
11:06 16:39 23:23
Troponin I 0.107 H* 0.155 H* D 0.186 H*
08/21/24
05:53
Troponin I 0.160 H*
Physical Exam
Constitutional: Distress
Cardiovascular: Rhythm & rate is regular and Pedal edema is absent
Respiratory: Wheeze Present and Crackles Present
GI: Soft, Non tender and Normal bowel sounds
Neuro/Psych: Alert (and awake but not oriented )
Data Reviewed
-
Date of Service: August 23, 2024
[2024-08-23 09:27] LABS: Magnesium 2.2 mg/dl (1.6-2.3)
--- NOTE | 2024-08-23 09:58 | W.PN.HOSP.TC ---
Today's Communication/Plan
-
follow up further Cardiology recommendations, may need further IV Lasix
BiPAP qhs
continue duonebs
son updated
Assessment / Plan
Assessment / Plan
89-year-old female with hx HFpEF, CKD, chronic CO2 retention, esential HTN, DM presents to ER with shortness of breath, admitted for hypoxic and hypercarbic resp failure.
CVS: S1-S2 normal, SM at apex and AA
Chest: Coarse breath sounds, cough
Abdomen: Soft, NT / Bowel sounds present
Extremities: No edema
EKG-sinus rhythm, left axis deviation, RBBB
Echo-normal biventricular size and systolic function without regional wall motion abnormality. Severe LA enlargement, moderate MS, moderate to severe , PA pressure 40 to 45 mmHg.
# Acute hypoxic and acute on chronic hypercapnic respiratory failure likely secondary to CHF and CLARITZA/CO2 retention
ABG shows primary respiratory acidosis with secondary metabolic acidosis
Continue BiPAP at bedtime
patietn initially refusing BiPAP but after discussion with son, willing to use at night
per patient and family, want to hold off on hospice discussions now
# Acute on chronic HFpEF
-TTE results above
-s/p IV lasix and transitioned to Bumex on 08/22
-patient with mild BRYAN today; will hold afternoon Bumex and follow up with Cardiology. weight is up again, suspect she may need further IV diuresis
acute on chronic kidney disease
-baseline creatinine ~1.6, up to 2.1 today
-weight is up from yesterday
-suspect 2/2 heart failure - will follow up further Cardiology recommendations
# Chronic CO2 retention suspected per pulmonary note
Continue BiPAP at night
continue DuoNebs
Added doxycycline for acute bronchitis
On Arnuity Ellipta, ipratropium bromide, levalbuterol, montelukast as outpatient
# Acute TME likely secondary to above-resolving
# Elevated troponin-likely nonischemic myocardial injury secondary to CHF
# Valvular heart disease-mild to moderate mitral stenosis, mild MR, moderate AAS, trace AI
# Hypertension-continue amlodipine
# Diabetes-hemoglobin A1c-8.8
Continue linagliptin Farxiga, Accu-Cheks and sliding scale coverage(moderate)
Blood sugars seem to be running high
I do not think patient will be able to take insulin at home
Add Prandin
# Hyperlipidemia-continue statin
# Hypothyroidism-continue levothyroxine TSH noted. Repeat in 6 weeks as outpatient.
# Right BBB
# Generalized weakness/ambulatory dysfunction with history of fall
# Acute kidney injury on CKD stage III-monitor with diuresis.
# GERD-continue PPI
# History of left lower extremity DVT-continue Eliquis
# Anxiety and depression
# Spinal stenosis with gait abnormality/neuropathy-continue gabapentin
# Sleep apnea-patient was discharged to rehab February 2023 with a BiPAP. She had difficulty using it there therefore came back to [facility] without one.
# IBS
# Obesity with a BMI of 39
# DVT prophylaxis-Eliquis
# DNR
Discussed with pulmonary today.
Await patient and family decision regarding hospice
08/21/2024-spoke to patient's son and updated in detail. He stated that patient had 2 falls in the past few days at [facility] and they arranged for 24-hour care. He is also not sure if she was taking her medicines that much might have been some
confusion about her not being able to take her medicines.
Part of this note was created using voice recognition system. Occasional wrong word or��sound alike� substitutions may have inadvertently occurred due to the inherent limitations of voice recognition software. If noted kindly bring it to my
attention for correction.
Anticipated Discharge: 24 - 48 hours
Subjective/Interval History
-
Date of Service: August 23, 2024
awoken from sleep
denies pain
states breathing is OK
Objective Data
-
Labs:
Laboratory Results
07/16/25
05:10
Sodium 142
Potassium 4.6
Chloride 107
Carbon Dioxide 34 H
BUN 68 H
Creatinine 2.1 H
Glucose 210 H
Calcium 9.1
Vital Signs:
Vital Signs
Temp Pulse Resp BP Pulse Ox
98.4 F 81 20 127/51 91
08/23/24 08:01 08/23/24 08:01 08/23/24 08:01 08/23/24 08:01 08/23/24 08:01
I&O
08/22/24 08/23/24 08/24/24
06:59 06:59 06:59
Intake Total 960 / 960 660 / 660
Output Total 1120 / 1120 300 / 300
Balance -160 / -160 360 / 360
Review of Systems
-
History Source: Patient
All other systems: Reviewed and negative
Physical Exam
-
General: Other (obese, frail appearing; awoken from sleep )
HEENT: PERRLA
Respiratory: Decreased Breath Sounds
Cardiac: Regular Rhythm and S1/S2
GI: Soft and Nontender
Musculoskeletal: No Edema
Skin: Warm and Dry
Psych: Calm
Data Reviewed
-
Diagnostic Radiology: Report Reviewed by me
Labs: Labs Reviewed by me
--- NOTE | 2024-08-23 10:44 | HOSPNOTE ---
Follow up conversation with son Willie. He and the patient wish to hold off on hospice discussion at this time. They are hoping for rehab at [facility] and then seeing where patient goes from there. They do have our contact information to reach out
when they are ready for hospice services. CM updated. Hospice will sign off at this time.
--- NOTE | 2024-08-23 11:21 | W.PN.PUL3 ---
Today's Communication / Plan
-
Unresponsive, check stat ABG
Replaced on BIPAP, she has been refusing when awake
Noncompliance and refusal for treatment ongoing, hospice consult placed--awaiting decision
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
Assessment
-
89-year-old female with history of heart failure, hypoxic and hypercarbic respiratory in the past, pulm hypertension, right bundle branch block, DVT/PE presents with increased weakness, shortness of breath, confusion. Patient also notes she fell 2
weeks ago when she hit the bathtub, denied loss of consciousness or head trauma. She admits to hitting her left flank. Admitted for hypoxic and hypercarbic respiratory failure requiring BiPAP. We are asked to comment on pulmonary process
Acute hypoxic respiratory insufficiency, requiring BiPAP--refusing
Suspected chronic hypercarbia based on VBG
Suspected acute heart failure
Diastolic dysfunction
Moderate aortic stenosis per records
Normal EF per echo in February 2023
Right bundle branch block, per EKG
Gait dysfunction, recent fall 2 weeks ago
Acute renal insufficiency, creatinine 1.8
Baseline 1.3-1.6
Hyperglycemia
Conditions present prior to admission
History of recurrent admission for TME
Recurrent UTI, E. coli
Coronary disease
Valvular disease, aortic stenosis/mitral stenosis
Asthma/COPD
Hypothyroidism
Hypertension/hyperlipidemia
[facility] resident
DNR
Plan/recommendations
At this time, patient appears to have stabilized
Acute hypercarbic respiratory failure however this is a VBG.
ABG confirms mild hypercarbia, pH 7.29. Similar to prior ventilatory abnormality in February 2023 at which time she was here for hypoxic and hypercarbic respiratory failure
Studies reviewed: 02/2023-- 7.33/59
ABGs 08/20/24--7. -> 7. (persistent)
More unresponsive today, but has been refusing PAP-- stat ABG
Patient is presently off her BiPAP, she has been refusing
Would continue BiPAP tonight and as needed--she understands risks of refusing treatment but states she does not wish to continue going on
We discussed GOC this AM, she feels she may be ready for hospice if not improving
We would need to obtain set up at home but not sure if she would comply--she notes she would not today
Last admission in 2023 for similar, instructed to FU as OP for sleep eval, did not pursue
She is in agreement to hospice consult, will place
Avoid narcotic therapy, sedation
Head of bed elevated
Remains on outpatient medications, including Eliquis.
Patient currently receiving Lasix twice daily
Follow urine output, creatinine
Follow electrolytes
Hyperglycemia noted. Follow blood sugars.
Currently on insulin sliding scale, continue outpatient medications
PT/OT, OOB as able
DNR status noted
Reviewed with nursing
GO discussions, c/s hospice -- she continues to decline treatment
Diagnostic Data
CXR 08/20/24- No acute disease of the chest considering the limited inspiration
02/21/23- Improved aeration left lower lung field. Probable residual mild pneumonia
ECHO 02/15/23- Normal biventricular size and systolic function without regional wall motion abnormality. Mild to moderate mitral stenosis. Mild mitral regurgitation (may be underestimated due to acoustic shadowing). Moderate aortic stenosis. Trace
aortic regurgitation. Compared to previous echo 05/27/21, aortic stenosis now moderate from mild to moderate on the prior study.
Total time spent today was 51 minutes for this encounter. Time includes reviewing laboratory test/imaging results, reviewing pertinent medical records, obtaining and reviewing medical history, performing an appropriate exam, ordering medications,
tests and procedures. Time also includes documentation of this encounter, coordinating patient care and communicating with other healthcare professionals. Total time does not include separately billed tests performed on this date of service.
Subjective Data
-
Date of Service:
Date of Service: August 23, 2024
Chief Complaint: Pulmonary Follow Up
Subjective:
Very difficult to arouse again today
Objective Data
Data Reviewed
Vital Signs / I&O / Oxygen:
Vital Signs
Temp Pulse Resp BP Pulse Ox
97.7 F 77 18 117/52 95
08/23/24 11:08 08/23/24 11:08 08/23/24 11:08 08/23/24 11:08 08/23/24 11:08
Intake and Output
08/22/24 08/23/24 08/24/24
06:59 06:59 06:59
Intake Total 960 / 960 660 / 660
Output Total 1120 / 1120 300 / 300
Balance -160 / -160 360 / 360
SaO2 95
Nasal Cannula flow liters per 6
minute
Physical Exam
General: Comfortable and Other (NAD, obese, deconditioned appearing)
HEENT: Normocephalic, Anicteric and Moist Mucous Membranes
Cardiovascular: S1-S2, Regular Rhythm and Peripheral Edema
Respiratory: Crackles (decreased overall) and Non-Labored Respirations
GI: Soft, Non Distended and Non Tender
Neurology: No Motor Deficits and Unresponsive
Skin: Warm and Dry
Labs/Micro/Reports
Lab Data
08/20/24 09:50
08/23/24 05:10
[2024-08-23 11:31] LABS: Glucose - Point of Care 296 mg/dl (70-99)
[2024-08-23] MEDS: NOVOLOG FLEXPEN-MODERATE RESISTANCE 5 UNITS SC ×2 (11:38→15:35)
[2024-08-23 14:41] LABS: B.E. 0.8 mmol/L; HCO3 30.4 mmol/L (21-28); O2 Saturation % 91.3 % (94-98)
[2024-08-23 14:46] LABS: PCO2 76 mmHg (32-35); PO2 54 mmHg (83-108)
--- NOTE | 2024-08-23 14:49 | CM ---
Chart reviewed. Per Tr[facility]/Hospice, spoke w/ son who is not agreeable to hospice at this time and would like to plan for SNF at d/c. Patient now willing to wear Bipap at night.
Referral sent to [facility] as she is a patient at [facility]
Plan: [facility] when medically stable
--- NOTE | 2024-08-23 15:00 | PTCARENOTE ---
08/23- Critical ABGs returned from Respiratory. pH=7.2, pCO2=76, pO2=54 and HCO3=30.4. Patient is pale, shallow breathing, Dyspnea at rest, more lethargic, responsive to painful stimuli via sternal rub. BP= 137/89; POX=95% on 4L BiPAP; HR=66;
RR=24; Fkhqwqoim=694; T=97.2. EKG shows NSR with BBB. Notified Physician. Respiratory Therapy present- administered BiPAP and Nebs as ordered. See Nursing Assessment Intervention.
[2024-08-23 15:10] LABS: Glucose - Point of Care 282 mg/dl (70-99)
--- NOTE | 2024-08-23 15:12 | W.PN.UPDATE ---
Update Note
Progress Note Update
patient more somnolent this afternoon
ABG obtained, patient is retaining
will place on BiPAP now and transfer to IMU
called son and left for him to call me back
Attempting diuresis to see if this helps respiratory status; she needs to wear biPAP at night and whenever sleeping during day
Son was hesitant for hospice this morning, wanted to try to encourage BiPAP. Depending on respiratory status, renal function and patient's willingness to have BiPAP On today will have continued conversations.
[2024-08-23] MEDS: PRANDIN PO (15:26)
[2024-08-23] MEDS: TYLENOL PO (15:26)
[2024-08-23] MEDS: MUCINEX PO (15:26)
[2024-08-23] MEDS: SINGULAIR PO (15:27)
[2024-08-23] MEDS: LASIX 40 MG IV (15:34)
--- NOTE | 2024-08-23 15:45 | PTCARENOTE ---
08/23- Patient still lethargic but responsive to verbal stimuli on BiPAP. POX=95% on 4L BiPAP; HR=83; RR=20; BP= 130/78; T=97.7. Skin Pale/Cool/Dry. +PulsesX4 but feet still pale/cool but not cyanotic or mottled. Awaiting IMU bed. Continue BiPAP
as ordered.
[2024-08-23 16:34] LABS: Glucose - Point of Care 223 mg/dl (70-99)
--- NOTE | 2024-08-23 17:10 | PTCARENOTE ---
08/23- Patient ready to be transferred to IMU for Continuous BiPAP monitoring. Patient currently Sinus Mohamud on monitor with HR=55. Lethargic, responsive to painful stimuli via sternal rub. Skin=pale/cool/dry. Report called to IMU. Transfer with
Respiratory on Continuous BiPAP to IMU.
--- NOTE | 2024-08-23 17:58 | PTCARENOTE ---
Received patient into room 3342 from . Patient arrived with eyes closed on BiPAP. Pt transferred into bed and settled. Patient opens her eyes to voice. She is oriented x2, self and time, states she is '[place] the [place]' when asked place.
She appears confused and forgetful. Pt with tremors. Lungs very diminished. Pt keeping BiPAP on as of now. Pt appears pale and has MASD in most body folds. Care and VS as charted.
[2024-08-23 21:48] LABS: Glucose - Point of Care 155 mg/dl (70-99)
--- NOTE | 2024-08-23 23:29 | PTCARENOTE ---
Addendum entered by Thierry Adam RN 08/23/24 23:38:
Patient off bipap from [id number] to eat, placed back on Bipap for sleep per RT. Pt agreeable to keep on the rest of the night.
Original Note:
Patient A/O x3. Patient upset she didn't know how she got here(IMU). Updated patient on plan of care. Pt requesting to eat dinner. RT at bedside to remove Bipap and placed pt on 5L. Food heated up, pt able to eat dinner independently. Swallowed meds
w/o issues with water. Pt states she wants 'end of life consult' and 'doesn't want any of this'. CELL TECHNICIAN Hephziba aware.
Patient with tremors causing telemetry to alarm vtach/vfib. Telemetry leads placed to posterior back; vtach/vfib alarms stopped. NSR/SB w/ BBB Purewick placed; incont. Foam to sacrum changed, heels floated. Desenex powder to MASD areas. SCDs on.
Trace edema. Right hand IV flushed and saline locked. Pt denies any pain. Repositioned q2 hours. Call dickerson and tray table within reach. Bed alarm set for safety.
[2024-08-24 00:01] VITALS: BP 101/30
[2024-08-24 02:00] VITALS: BP 105/35
--- NOTE | 2024-08-24 02:50 | PTCARENOTE ---
Patient took of her bipap mask completely. Adamantly refusing to have it on. Placed on 4L NC. pt states she doesnt know whats going on or who brought her here. POC was reiterated to patient. Re-oriented to place and situation. Reminded pt she had
agreed to keep the mask on until the morning. pt yelled 'if I , I '. RT updated.
[2024-08-24 03:17] VITALS: BMI 40.2
[2024-08-24] MEDS: MUCINEX 600 MG PO (03:33)
--- NOTE | 2024-08-24 03:38 | PTCARENOTE ---
Patient consistently dribbling small amounts of urine. No urine output since change of shift. Bladder scan showing 1150mL. Pt does not feel the urge to void. RAFIQ Ferraro made aware. Order for straight cath received. Questioned the need to place
simons per protocol. Confirmed with RACK PUSHER to straight cath. First few seconds of stream upon straight cath were milky/cream color which then turned to cloudy yellow with foul odor. RACK PUSHER made aware and order for urine culture received. Urine obtained
and sent. Pt tolerated straight cath. Purewick not in place at this time. Desenex powder reapplied. Call dickerson and tray table within reach. Bed alarm set for safety.
[2024-08-24 03:57] LABS: Blood Urea Nitrogen 80 mg/dl (7-17); Calcium 8.8 mg/dl (8.4-10.2); Carbon Dioxide 28 mmol/L (22-30); Chloride 107 mmol/L (98-107); Estimated Creatinine Clearance 18 ml/min; Glucose 245 mg/dl (70-99); Potassium 5.3 mmol/L (3.5-5.1); Sodium 141 mmol/L (135-145); eGFR 20.07
[2024-08-24 04:00] VITALS: BP 119/46
[2024-08-24 04:54] LABS: Urine Character Slightly Cloudy (Clear)
[2024-08-24 05:18] LABS: Urine Squamous Cell >30 /LPF (Few)
[2024-08-24 05:19] LABS: Urine White Cell >100 /HPF (0-5)
[2024-08-24] MEDS: SYNTHROID 100 MCG PO (06:08)
--- NOTE | 2024-08-24 06:12 | PTCARENOTE ---
Patient again woke up confused calling out for help. Found pt with blood on arms and hand on IV site. IV was removed from right hand and bleeding. Pressure applied, bleeding stopped. Sp02 84% on RA. 4L NC placed back on pt. Sp02 93%. Re-oriented pt
to surroundings. Pt stated 'let me go, give everything to the kids'. Pt cleaned, new gown given. VAT aware to place new PIV.
[2024-08-24 06:37] VITALS: BP 126/46
[2024-08-24 07:06] LABS: Glucose - Point of Care 260 mg/dl (70-99)
[2024-08-24] MEDS: DUONEB 3 ML INH (07:45)
[2024-08-24] MEDS: FLOVENT 44 MCG INHALER 2 PUFF INH (07:46)
--- NOTE | 2024-08-24 07:46 | W.PN.HOSP.TC ---
Addendum entered and electronically signed by Vannessa Mcneal MD 08/29/24 14:46:
Sacrum Stage 2 Pressure Injury
Right buttock Stage 2 Pressure Injury
- appreciate wound care
Original Note:
Today's Communication/Plan
-
hold IV Lasix with bump in creatinine, although BRYAN may be in setting of urinary retention (s/p straight cath)
further GOC discussions to be had later this morning with son, as patient did not tolerate BiPAP overnight, became very agitated and she was worsening renal function this morning
if decision made for comfort could resume oral Bumex without further labs checks
appreciate Pulmonary and Cardiology
Assessment / Plan
Assessment / Plan
89-year-old female with hx HFpEF, CKD, chronic CO2 retention, essential HTN, DM presents to ER with shortness of breath, admitted for hypoxic and hypercarbic respiratory failure. She was treated with BiPAP and IV diuresis. Patient with difficulty
tolerating BiPAP and hospital course complicated by hypercarbic respiratory failure afternoon of 08/23. With agitation overnight on BiPAP, worsening renal function, will have further talks with son about hospice (these were initiated on 08/23).
EKG-sinus rhythm, left axis deviation, RBBB
Echo-normal biventricular size and systolic function without regional wall motion abnormality. Severe LA enlargement, moderate MS, moderate to severe , PA pressure 40 to 45 mmHg.
# Acute hypoxic and acute on chronic hypercapnic respiratory failure likely secondary to CHF and CLARITZA/CO2 retention
-ABG shows primary respiratory acidosis with secondary metabolic acidosis
-Patient with difficulty tolerating BiPAP overnight. Additionally, when sleeping during the day she had recurrence of hypercarbic respiratory failure afternoon of 08/23
-continued GOC disucssions to be had today
# Acute on chronic HFpEF
-TTE results above
-s/p IV lasix and transitioned to Bumex on 08/22
-with increased weight, IV Lasix resumed on 08/23 - will hold morning of 08/24 for BRYAN (retention may be contributing)
acute on chronic kidney disease
-baseline creatinine ~1.6, up to 2.3 today
-s/p straight cath with over 1L out overnight (at time labs were drawn)
-*follow up GOC discussions. If decision is made for hospice, would hold off on further labs draws
# Chronic CO2 retention suspected per pulmonary note
Continue BiPAP at night
continue DuoNebs
Added doxycycline for acute bronchitis
On Arnuity Ellipta, ipratropium bromide, levalbuterol, montelukast as outpatient
# Acute TME likely secondary to above- waxes and wanes based on ability to use BiPAP
# Elevated troponin-likely nonischemic myocardial injury secondary to CHF
# Valvular heart disease-mild to moderate mitral stenosis, mild MR, moderate AAS, trace AI
# Hypertension-continue amlodipine
# Diabetes-hemoglobin A1c-8.8
-Continue linagliptin Farxiga, Accu-Cheks and sliding scale coverage(moderate)
-Prandin initiated
# Hyperlipidemia-continue statin
# Hypothyroidism-continue levothyroxine TSH noted. Repeat in 6 weeks as outpatient.
# Right BBB
# Generalized weakness/ambulatory dysfunction with history of fall
# Acute kidney injury on CKD stage III-monitor with diuresis.
# GERD-continue PPI
# History of left lower extremity DVT-continue Eliquis
# Anxiety and depression
# Spinal stenosis with gait abnormality/neuropathy-continue gabapentin
# Sleep apnea-patient was discharged to rehab February 2023 with a BiPAP. She had difficulty using it there therefore came back to [facility] without one.
# IBS
# Obesity with a BMI of 39
# DVT prophylaxis-Eliquis
# DNR
08/21/2024- Dr. Barahona spoke to patient's son and updated in detail. He stated that patient had 2 falls in the past few days at [facility] and they arranged for 24-hour care. He is also not sure if she was taking her medicines that much might
have been some confusion about her not being able to take her medicines.
08/23 - GOC discussions revisited (see update note)
08/24 - with overnight events, continued GOC talks to be had today
51 minutes spent on patient care
Anticipated Discharge: 24 - 48 hours
Subjective/Interval History
-
Date of Service: August 24, 2024
patient is awake and alert this morning, she is stating she is hungry
overnight she was agitated and pulled off BiPAP and her IV
Objective Data
-
Labs:
Laboratory Results
08/24/24
03:03
Sodium 141
Potassium 5.3 H
Chloride 107
Carbon Dioxide 28
BUN 80 H
Creatinine 2.3 H
Glucose 245 H
Calcium 8.8
Vital Signs:
Vital Signs
Temp Pulse Resp BP Pulse Ox
97.7 F 85 25 119/46 92
08/24/24 07:05 08/24/24 06:00 08/24/24 06:00 08/24/24 04:00 08/24/24 06:00
I&O
08/23/24 08/24/24 08/25/24
06:59 06:59 06:59
Intake Total 660 / 660 240 / 240
Output Total 300 / 300 1100 / 1100
Balance 360 / 360 -860 / -860
Review of Systems
-
History Source: Patient
All other systems: Reviewed and negative
Physical Exam
-
General: Other (more awake and alert this morning)
HEENT: PERRLA
Respiratory: Decreased Breath Sounds
Cardiac: Regular Rhythm and S1/S2
GI: Soft and Nontender
Musculoskeletal: No Edema
Skin: Warm and Dry; Negative Rash
Neuro: Awake and Alert
Psych: Calm
Data Reviewed
-
Diagnostic Radiology: Report Reviewed by me
Labs: Labs Reviewed by me
[2024-08-24 08:00] VITALS: BP 91/69
[2024-08-24] MEDS: NOVOLOG FLEXPEN-MODERATE RESISTANCE 5 UNITS SC (08:33)
[2024-08-24] MEDS: NEURONTIN 300 MG PO (08:34)
[2024-08-24] MEDS: PROTONIX 40 MG PO (08:34)
[2024-08-24] MEDS: JANUVIA 25 MG PO (08:34)
[2024-08-24] MEDS: SENOKOT 8.6 MG PO (08:34)
[2024-08-24] MEDS: NORVASC PO (08:36)
[2024-08-24] MEDS: FARXIGA 10 MG PO (08:37)
[2024-08-24] MEDS: PRANDIN 2 MG PO (08:37)
[2024-08-24] MEDS: TYLENOL 1000 MG PO (08:37)
[2024-08-24] MEDS: ELIQUIS 5 MG PO (08:37)
[2024-08-24] MEDS: VIBRAMYCIN 100 MG PO (08:37)
[2024-08-24] MEDS: LIPITOR 20 MG PO (08:37)
[2024-08-24] MEDS: DESENEX/MITRAZOL/ZEASORB 1 APPLIC TOPICAL (08:40)
--- NOTE | 2024-08-24 08:42 | W.PN.UPDATE ---
Update Note
Progress Note Update
I spoke to patient's son and we discussed goals of care given difficulty tolerating BiPAP overnight, worsening renal function and after my conversation with patient this morning when she was more alert and able to clearly express she is ready for
hospice.
Hospice consult placed again
will stop further lab draws
resume oral Bumex for this afternoon
regular diet ordered
--- NOTE | 2024-08-24 09:20 | W.PN.PUL3 ---
Today's Communication / Plan
-
Events noted, cannot tolerate BIPAP indefinitely
She is in agreement to hospice, consult placed
We will sign off at this time, please call with questions
Assessment
-
89-year-old female with history of heart failure, hypoxic and hypercarbic respiratory in the past, pulm hypertension, right bundle branch block, DVT/PE presents with increased weakness, shortness of breath, confusion. Patient also notes she fell 2
weeks ago when she hit the bathtub, denied loss of consciousness or head trauma. She admits to hitting her left flank. Admitted for hypoxic and hypercarbic respiratory failure requiring BiPAP. We are asked to comment on pulmonary process
Acute hypoxic respiratory insufficiency, requiring BiPAP--refusing
Suspected chronic hypercarbia based on VBG
Suspected acute heart failure
Diastolic dysfunction
Moderate aortic stenosis per records
Normal EF per echo in February 2023
Right bundle branch block, per EKG
Gait dysfunction, recent fall 2 weeks ago
Acute renal insufficiency, creatinine 1.8
Baseline 1.3-1.6
Hyperglycemia
Conditions present prior to admission
History of recurrent admission for TME
Recurrent UTI, E. coli
Coronary disease
Valvular disease, aortic stenosis/mitral stenosis
Asthma/COPD
Hypothyroidism
Hypertension/hyperlipidemia
[facility] resident
DNR
Plan/recommendations
At this time, patient appears to have stabilized
Acute hypercarbic respiratory failure however this is a VBG.
ABG confirms mild hypercarbia, pH 7.29. Similar to prior ventilatory abnormality in February 2023 at which time she was here for hypoxic and hypercarbic respiratory failure
Studies reviewed: 02/2023-- 7
ABGs 08/20/24-- -> (persistent)
More unresponsive today, but has been refusing PAP-- stat ABG
Patient is presently off her BiPAP, she has been refusing
Would continue BiPAP tonight and as needed--she understands risks of refusing treatment but states she does not wish to continue going on
We discussed GOC this AM, she feels she may be ready for hospice if not improving
We would need to obtain set up at home but not sure if she would comply--she notes she would not today
Last admission in 2023 for similar, instructed to FU as OP for sleep eval, did not pursue
She is in agreement to hospice consult, will place
Avoid narcotic therapy, sedation
Head of bed elevated
Remains on outpatient medications, including Eliquis.
Patient currently receiving Lasix twice daily
Follow urine output, creatinine
Follow electrolytes
Hyperglycemia noted. Follow blood sugars.
Currently on insulin sliding scale, continue outpatient medications
PT/OT, OOB as able
DNR status noted
Reviewed with nursing
[facility] discussions, c/s hospice -- she continues to decline treatment
Patient and son are now in agreement to hospice
Diagnostic Data
CXR 08/20/24- No acute disease of the chest considering the limited inspiration
02/21/23- Improved aeration left lower lung field. Probable residual mild pneumonia
ECHO 02/15/23- Normal biventricular size and systolic function without regional wall motion abnormality. Mild to moderate mitral stenosis. Mild mitral regurgitation (may be underestimated due to acoustic shadowing). Moderate aortic stenosis. Trace
aortic regurgitation. Compared to previous echo 05/27/21, aortic stenosis now moderate from mild to moderate on the prior study.
Total time spent today was 45 minutes for this encounter. Time includes reviewing laboratory test/imaging results, reviewing pertinent medical records, obtaining and reviewing medical history, performing an appropriate exam, ordering medications,
tests and procedures. Time also includes documentation of this encounter, coordinating patient care and communicating with other healthcare professionals. Total time does not include separately billed tests performed on this date of service.
Subjective Data
-
Date of Service:
Date of Service: August 24, 2024
Chief Complaint: Pulmonary Follow Up
Subjective:
Difficulty wtih BIPAP noted overnight, she is still refusing to use for extended period of time
She is in agreement with hospice now
Objective Data
Data Reviewed
Vital Signs / I&O / Oxygen:
Vital Signs
Temp Pulse Resp BP Pulse Ox
97.7 F 85 20 91/69 91
08/24/24 07:05 08/24/24 07:48 08/24/24 07:48 08/24/24 08:36 08/24/24 07:48
Intake and Output
08/23/24 08/24/24 08/25/24
06:59 06:59 06:59
Intake Total 660 / 660 240 / 240
Output Total 300 / 300 1100 / 1100
Balance 360 / 360 -860 / -860
SaO2 91
Nasal Cannula flow liters per 4
minute
Physical Exam
General: Comfortable and Other (NAD, obese, deconditioned appearing)
HEENT: Normocephalic, Anicteric and Moist Mucous Membranes
Cardiovascular: S1-S2, Regular Rhythm and Peripheral Edema
Respiratory: Crackles (decreased overall) and Non-Labored Respirations
GI: Soft, Non Distended and Non Tender
Neurology: No Motor Deficits and Unresponsive
Skin: Warm and Dry
Labs/Micro/Reports
Lab Data
08/20/24 09:50
08/24/24 03:03
Laboratory Results
08/23/24
14:30
pH 7.21 L
pCO2 76 H*
pO2 54 L*
HCO3 30.4 H
O2 Delivery Level
--- NOTE | 2024-08-24 10:02 | HOSPNOTE ---
Patient will be admitted inpatient hospice today. Spoke with son and he is in agreement. Admissions was called and Attending and CM aware of plan.
--- NOTE | 2024-08-24 10:11 | CM ---
CM reviewed chart, reviewed with Hospice, patient will be admitted to inpatient house. CM will continue to follow for all discharge planning needs.
Plan; admit to inpatient Hospice
--- NOTE | 2024-08-24 11:23 | PTCARENOTE ---
Rec'd pt this AM. Pt AAO x3 today. Expressing wish to go on hospice, be made comfortable and have as little medical intervention as possible. Dr. Mcneal and Mague Christian met with pt who agrees and will be admitted to general inpatient hospice today
[2024-08-24] MEDS: DUONEB INH (11:32)
[2024-08-24 11:53] LABS: Glucose - Point of Care 229 mg/dl (70-99)
--- NOTE | 2024-08-24 12:03 | W.DCSUMMARY ---
Discharge Summary
Discharge Data
Date of Admission: 08/20/24
Date of Discharge: 08/24/24
-
Pending Results: No
Hospital Course
Discharging Physician : Dr. Vannessa Mcneal
Disposition : Inpatient Hospice
Principal Discharge diagnosis : Hypercarbic respiratory failure, heart failure preserved ejection fraction acute exacerbation
Hospital Course :
Ms. Usha Henderson is a 89 yo woman with hx HFpEF, CKD, chronic CO2 retention, essential HTN, DM presents to ER with shortness of breath and confusion. Triage vitals significant for SpO2 81% and RR in 30's. Labs with hypercarbic respiratory
failure, pH 7.29 and CO2 62, BNP elevated. CXR without acute disease. She was admitted for hypoxic and hypercarbic respiratory failure, suspected heart failure exacerbation. She was treated with BiPAP and IV diuresis. Patient with difficulty
tolerating BiPAP and hospital course complicated by return of hypercarbic respiratory failure afternoon of 08/23. She was transferred to the IMU. Overnight she had difficulty tolerating BiPAP. Despite diuresis, she has worsening renal function
this morning. Goals of care discussions had over past 48 hours and decision made to transition to comfort care and hospice.
Time spent on discharge was 35 minutes.
Important imaging findings :
Procedure findings :
Discharge Plan
-
Patient Disposition: Hospice - Inpatient
Discharge Diagnosis/Procedures: hypercarbic respiratory failure
Diet: Regular
Activity: With assistance
Driving Restrictions: No driving
Bathing Restrictions: None
Referrals:
Anu Earl DO [Family Provider, Internal Medicine]
Prescriptions:
New
lorazepam [Ativan] 2 mg/mL Solution
0.5 mg IV Q4HPRN PRN (Reason: anxiety) Qty: 0 0RF
ipratropium-albuterol 0.5 mg-3 mg(2.5 mg base)/3 mL Solution For Nebulization
3 ml inhalation R QID Qty: 0 0RF
Continued
levothyroxine 100 MCG tablet
100 mcg PO MOTUWETHFRSA
omeprazole 20 MG capsule,delayed release(DR/EC)
20 mg PO DAILY
montelukast 10 MG tablet
10 mg PO QPM
Arnuity Ellipta 100 MCG blister with device
1 puff inhalation R DAILY
acetaminophen [Tylenol Extra Strength] 500 mg Tablet
1,000 mg PO TID
levothyroxine [Synthroid] 50 mcg Tablet
50 mcg PO HO
gabapentin 300 mg Capsule
300 mg PO BID
bisacodyl [Dulcolax (bisacodyl)] 5 mg Tablet,Delayed Release (Dr/Ec)
5 mg PO DAILYPRN PRN (Reason: CONSTIPATION)
bumetanide 0.5 mg Tablet
0.5 mg PO BID
guaifenesin [Mucinex] 600 mg Tablet Extended Release 12hr
600 mg PO Q12H
lidocaine 4 % Adhesive Patch,Medicated
1 patch TOPICAL DAILY
Rx Instructions:
on in am, off in pm
alum-mag hydroxide-simeth [Mag-Al Plus] 200-200-20 mg/5 mL suspension
5 ml PO QIDPRN PRN (Reason: HEARTBURN)
Discontinued
sennosides [senna] 1 TABLET tablet
1 tab PO BID
atorvastatin 20 MG tablet
20 mg PO DAILY
amlodipine 10 MG tablet
10 mg PO DAILY
cholecalciferol (vitamin D3) 1,000 UNITS tablet
1,000 units PO MOWEFR
levalbuterol HCl 0.63 mg/3 mL Solution For Nebulization
0.63 mg INHALATION R Q6 PRN (Reason: Lung/Breathing Issues)
ipratropium bromide 0.02 % Solution
2.5 ml INHALATION R Q6
Eliquis 5 mg Tablet
5 mg PO BID Qty: 60 0RF
dapagliflozin propanediol [Farxiga] 10 mg Tablet
10 mg PO DAILY Qty: 30 0RF
linagliptin 5 mg Tablet
5 mg PO DAILY
Discharge Orders:
Discharge Patient (As Directed); Ordered 08/24/24
Ordered By: Vannessa Mcneal
Discharge Date and Time
Print Language: GRENADIAN
--- NOTE | 2024-08-24 12:52 | PTCARENOTE ---
Pt transitioning to hospice. report given to Abbey on .
[2024-08-24 13:10] VITALS: BP 139/51
--- NOTE | 2024-08-29 12:52 | PN.CDI ---
CDI
- -
CDI:
Physician Documentation Request
Admit Date: 08/20/24 14:34
Dear Doctor Fredis,
Clinical Indicators:
Patient admitted with acute HFpEF exacerbation and hypercarbic respiratory failure; transitioned to comfort care and hospice.
08/21 RN skin/wound assessment: Sacrum Stage 2 Pressure Injury
08/22, 08/23 RN skin/wound assessments: Right buttock Stage 2 Pressure Injury
Treatment: Silicone border foam dressing
Physician documentation of the type and location of wounds is required for compliant documentation. Based on the above clinical findings and your assessment, please provide the following in your progress note:
1. Location of the ulcer/wound, including laterality.
2. Type (etiology) of ulcer/wound:
- Pressure (decubitus) ulcer
- Other
- Unable to determine
3. If a pressure ulcer, please also include the stage* of the ulcer:
- Stage 1 - Skin intact, non-blanchable redness
- Stage 2 - Partial thickness loss of dermis, includes intact or open blister
- Stage 3 - Full thickness tissue not including bone, tendon or muscle
- Stage 4 - Full thickness tissue loss, including exposed bone, tendon or muscle
- Unstageable - Full thickness loss in which the base of the ulcer is covered by slough (yellow, raymundo, brown, green or brown) and/or eschar (raymundo, brown or black) in the wound bed.
- Unable to determine
Use of terms such as suspected, likely, concern for, or probable (associated with a specific diagnosis that is being evaluated, monitored, or treated as if it exists) are acceptable and can be coded in the inpatient setting, when documented at the
time of discharge.
Thank you,
ALMA Golden RN
CDI Specialist
available via tiger text
Please use your independent medical judgment in providing your response.
*Source: National Pressure Ulcer Advisory Panel (NPUAP)
== END 2024-08-24 13:30 | disposition hospice, inpatient (51) | DRG 291 ==
LOC: 2 NORTH 14:34
PROVIDERS: Hospitalist; Internal Medicine; Nurse Practitioner Gerontology; Registered Nurse; ADMITTING PHYSICIAN Internal Medicine; ATTENDING PHYSICIAN Student in an Organized Health Care Education/Training Program; CONSULT PHYSICIAN Internal Medicine Cardiovascular Disease; CONSULT PHYSICIAN Internal Medicine Critical Care Medicine; EMERGENCY PHYSICIAN Emergency Medicine; FAMILY PHYSICIAN Internal Medicine
PROC: 5A09357 Assistance with Respiratory Ventilation, Less than 24 Consecutive Hours, Continuous Positive Airway Pressure (ICD-10-PCS; 2024-08-20)
DX: I13.0 Hypertensive heart and chronic kidney disease with heart failure and stage 1 through stage 4 chronic kidney disease, or unspecified chronic kidney disease (principal); G92.8 Other toxic encephalopathy; I50.33 Acute on chronic diastolic (congestive) heart failure; J96.01 Acute respiratory failure with hypoxia; J96.22 Acute and chronic respiratory failure with hypercapnia; J44.1 Chronic obstructive pulmonary disease with (acute) exacerbation; E87.20 Acidosis, unspecified; N17.9 Acute kidney failure, unspecified; J44.0 Chronic obstructive pulmonary disease with (acute) lower respiratory infection; E87.29 Other acidosis; Z51.5 Encounter for palliative care; R53.83 Other fatigue; R29.6 Repeated falls; D50.8 Other iron deficiency anemias; E03.9 Hypothyroidism, unspecified; E11.22 Type 2 diabetes mellitus with diabetic chronic kidney disease; E11.40 Type 2 diabetes mellitus with diabetic neuropathy, unspecified; E11.65 Type 2 diabetes mellitus with hyperglycemia; E78.00 Pure hypercholesterolemia, unspecified; G89.4 Chronic pain syndrome; K21.9 Gastro-esophageal reflux disease without esophagitis; I45.10 Unspecified right bundle-branch block; I25.10 Atherosclerotic heart disease of native coronary artery without angina pectoris; I08.0 Rheumatic disorders of both mitral and aortic valves; N18.30 Chronic kidney disease, stage 3 unspecified; J20.9 Acute bronchitis, unspecified; D63.1 Anemia in chronic kidney disease; G47.33 Obstructive sleep apnea (adult) (pediatric); G25.0 Essential tremor; F32.A Depression, unspecified; E66.9 Obesity, unspecified; L89.312 Pressure ulcer of right buttock, stage 2; I5A Non-ischemic myocardial injury (non-traumatic); I27.20 Pulmonary hypertension, unspecified; F41.9 Anxiety disorder, unspecified; L89.152 Pressure ulcer of sacral region, stage 2; Z60.2 Problems related to living alone; Z66 Do not resuscitate; Z91.199 Patient's noncompliance with other medical treatment and regimen due to unspecified reason; Z90.49 Acquired absence of other specified parts of digestive tract; Z11.52 Encounter for screening for COVID-19; Z86.718 Personal history of other venous thrombosis and embolism; Z79.01 Long term (current) use of anticoagulants; Z86.711 Personal history of pulmonary embolism; Z88.8 Allergy status to other drugs, medicaments and biological substances; Z79.890 Hormone replacement therapy; Z79.84 Long term (current) use of oral hypoglycemic drugs; Z79.51 Long term (current) use of inhaled steroids; Z68.39 Body mass index [BMI] 39.0-39.9, adult; Z82.49 Family history of ischemic heart disease and other diseases of the circulatory system; Z87.440 Personal history of urinary (tract) infections
CPT/HCPCS: 36600; 70450; 71046; 80048; 80053; 81003; 81015; 82607; 82805; 82947; 82962; 83036; 83735; 83880; 84439; 84443; 84484; 85025; 87077; 87086; 87186; 87811; 93005; 93306; 94640; 94660; 96374; 97163; 99291

== ENCOUNTER 2024-08-24 13:30 | Inpatient (IN) | payer OTHER, SELFPAY ==
--- NOTE | 2024-08-24 14:18 | HPS.HSE ---
Family Physician
-
Family Physician: INTERVIEWE UNKNOWN - PT NOT
Chief Complaint
-
respiratory failure
History of Present Illness
Ms. Usha Henderson is a 89 yo woman with hx HFpEF, CKD, chronic CO2 retention, essential HTN, DM presents to ER with shortness of breath and confusion. Triage vitals significant for SpO2 81% and RR in 30's. Labs with hypercarbic respiratory
failure, pH 7.29 and CO2 62, BNP elevated. CXR without acute disease. She was admitted for hypoxic and hypercarbic respiratory failure, suspected heart failure exacerbation. She was treated with BiPAP and IV diuresis. Patient with difficulty
tolerating BiPAP and hospital course complicated by return of hypercarbic respiratory failure afternoon of 08/23. She was transferred to the IMU. Overnight she had difficulty tolerating BiPAP. Despite diuresis, she has worsening renal function
this morning. Goals of care discussions had over past 48 hours and decision made to transition to comfort care and hospice.
Medical History
Past Medical History
Past Medical History: Reports CAD, CHF, COPD, GERD, HTN and Hypercholesterolemia
Past Surgical History: Reports Cholecystectomy and Tonsilectomy
Social History
Tobacco: Non-smoker
Alcohol: None
Drug: None
Living: Assisted Living (Lives in her own apartment at [facility])
Family History
Family History: Not pertinent
Allergies / Home Medications
Allergies reflects when Allergies were last updated in [employer].
Home Medications with original date entered in [employer]
Allergy/Medication List:
Allergies
Allergy/AdvReac Type Severity Reaction Status Date / Time
diltiazem (From Cardizem) Allergy SEE BELOW Verified 08/20/24 09:48
hydralazine Allergy Rash Verified 08/20/24 09:48
Home Medications
amlodipine 10 mg tablet 10 mg PO DAILY Blood pressure 05/20/21
atorvastatin 20 mg tablet 20 mg PO DAILY High cholesterol 05/20/21
cholecalciferol (vitamin D3) 25 mcg (1,000 unit) tablet 1,000 units PO MOWEFR Supplement 05/20/21
fluticasone furoate 100 mcg/actuation blister powder for inhalation (Arnuity Ellipta) 1 puff inhalation R DAILY Lung/breathing issues 05/20/21
levothyroxine 100 mcg tablet 100 mcg PO MOTUWETHFRSA Thyroid 05/20/21
montelukast 10 mg tablet 10 mg PO QPM Lung/breathing issues 05/20/21
omeprazole 20 mg capsule,delayed release 20 mg PO DAILY Gastrointestinal issue 05/20/21
sennosides 8.6 mg tablet (senna) 1 tab PO BID Constipation 05/20/21
acetaminophen 500 mg tablet (Tylenol Extra Strength) 1,000 mg PO TID Pain 01/25/23
bisacodyl 5 mg tablet,delayed release (Dulcolax (bisacodyl)) 5 mg PO DAILYPRN PRN CONSTIPATION 01/25/23
gabapentin 300 mg capsule 300 mg PO BID Pain 01/25/23
levothyroxine 50 mcg tablet (Synthroid) 50 mcg PO HO Thyroid 01/25/23
bumetanide 0.5 mg tablet 0.5 mg PO BID Fluid Retention/Swelling 02/12/23
guaifenesin 600 mg tablet, extended release 12 hr (Mucinex) 600 mg PO Q12H MUCUS 02/12/23
ipratropium bromide 0.02 % solution for inhalation 2.5 ml inhalation R Q6 Lung/Breathing Issues 02/12/23
levalbuterol HCl 0.63 mg/3 mL solution for nebulization 0.63 mg inhalation R Q6 PRN Lung/Breathing Issues 02/12/23
apixaban 5 mg tablet (Eliquis) 5 mg PO BID #60 tabs 02/25/23
dapagliflozin propanediol 10 mg tablet (Farxiga) 10 mg PO DAILY #30 tabs 02/25/23
aluminum-mag hydroxide-simethicone 200 mg-200 mg-20 mg/5 mL oral susp (Mag-Al Plus) 5 ml PO QIDPRN PRN HEARTBURN 08/20/24
lidocaine 4 % topical patch 1 patch topical DAILY 08/20/24
linagliptin 5 mg tablet 5 mg PO DAILY 08/20/24
Review of Systems
-
History Source: Patient
A 12 point ROS was completed and negative except as noted: Yes
Physical Exam
Vital Signs
Vital Signs
Temp
97.6 F
08/20/24 09:41
Physical Exam
General: Appears Chronically Ill
HEENT: NormoCephalic and Anicteric
Respiratory: Decreased Breath Sounds
Cardiac: S1/S2, Regular Rhythm and Murmur
GI: Soft, Non Tender, Non Distended and Normal Bowel Sounds
Musculoskeletal: No Clubbing, No Cyanosis and No Edema
Skin: Warm and Dry
Neuro: No Motor Deficits and Nonfocal/grossly intact
Psych: Calm
Data Reviewed
-
Diagnostic Radiology: Report Reviewed by me
Lab Data: Labs Reviewed by me
Impression/Plan
-
Acute hypoxic and acute on chronic hypercapnic respiratory failure likely secondary to CHF and CLARITZA/CO2 retention
Acute on chronic HFpEF
Acute on Chronic Kidney Disease
TME 2/2 hypercarbic respiratory Failure
-Patient with difficulty tolerating BiPAP. Her respiratory status is very tenuous and she no longer wants aggressive interventions; GOC discussions continued on morning of 08/24 with patient and her son and decision made for hospice
-discussed with son, stopping all non-comfort medications including Eliquis, antibiotics, statin, anti-hyperglycemic medications etc
-can continue duonebs and bumex (without lab draws) but OK to hold bumex if difficulty taking PO
-IV morphine PRN with option for drip
-Ativan PRN
-simons catheter (was retaining urine morning of 08/24)
-appreciate inpatient hospice consult
DNR
--- NOTE | 2024-08-24 14:31 | HOSPNOTE ---
Patient will be inpatient hospice, and moved to [facility].
[2024-08-24] MEDS: ATIVAN 0.5 MG PO ×2 (15:45→21:33)
[2024-08-24] MEDS: BUMEX 0.5 MG PO (15:45)
[2024-08-24 15:52] VITALS: BP 139/51
--- NOTE | 2024-08-24 19:01 | HOSPNOTE ---
14:30 - Admitted patient to Hospice GIP level of care for Dyspnea and Agitation with the need for nursing assessment that can not be managed in the outpatient environment. Patient will be seen daily by Hospice. Discharge planning to commence once
symptoms are managed.
[2024-08-24 19:15] VITALS: BP 132/43
[2024-08-25] MEDS: MORPHINE SULFATE 1 MG IV ×3 (03:00→05:02)
[2024-08-25] MEDS: ATIVAN 0.5 MG PO ×2 (03:44→05:44)
[2024-08-25] MEDS: MORPHINE 100 IV (05:15)
[2024-08-25] MEDS: MORPHINE SULFATE 2 MG IV (05:44)
--- NOTE | 2024-08-25 06:59 | W.PN.HOSP.TC ---
Today's Communication/Plan
-
comfort measures
Assessment / Plan
Assessment / Plan
Limited Physical Exam Comfort Measure
General: Appears Chronically Ill, no acute distress, appears comfortable
Respiratory: almost agonal breathing
Neuro: nonverbal
89F HFpEF, CKD, chronic CO2 retention, essential HTN, DM presents to ER with shortness of breath and confusion admitted for hypoxic and hypercarbic respiratory failure, suspected heart failure exacerbation. She was treated with BiPAP and IV
diuresis. Patient unable to tolerate BiPAP and hospital course complicated by return of hypercarbic respiratory failure afternoon of 08/23. She was transferred to the IMU. Overnight she had difficulty tolerating BiPAP. Despite diuresis, renal
function continued to worsen. Following goals of care discussions, decision was made by patient/family to pursue comfort care and hospice. Patient was transitioned to [facility] hospice accordingly.
Cont comfort measures
morphine gtt
[facility] end [facility] life care
Hospice eval appreciated
I spent a total of 35 minutes with the patient or on the floor. More than 50% of this time involved counseling and coordination of care.
Anticipated Discharge: Within 24 hours
Subjective/Interval History
-
Date of Service: August 25, 2024
no acute distress, appears comfortable, nonverbal.
Objective Data
-
Vital Signs:
Vital Signs
Temp Pulse Resp BP Pulse Ox
98.3 F 74 18 132/43 95
08/24/24 19:15 08/24/24 19:15 08/24/24 19:15 08/24/24 19:15 08/24/24 19:15
[2024-08-25] MEDS: DESENEX/MITRAZOL/ZEASORB 1 APPLIC TOPICAL (07:50)
[2024-08-25] MEDS: BUMEX PO ×2 (07:50→07:55)
--- NOTE | 2024-08-25 11:03 | HOSPNOTE ---
Patient is on a morphine drip and appears comfortable at this time, no family was present at this time. Encouraged to medicate prior to turning or repositioning. Patient continues to be inpatient appropriate for management of shortness of breath and
agitation. Patient will be seen daily.
--- NOTE | 2024-08-25 12:04 | CM ---
CM following re: discharge planning.
Pt admitted to inpatient hospice with hospice GIP.
CM is available for emotional support.
[2024-08-25 12:13] VITALS: BP 109/26
[2024-08-25] MEDS: ROBINUL 0.2 MG IV (13:13)
--- NOTE | 2024-08-25 14:54 | W.PN.DEATH ---
Pronouncement of
-
Called to see patient to pronounce.
No spontaneous heart tones or respirations noted.
Patient not responsive to verbal stimuli.
Patient is pronounced .
Time of : 14:36
Date of : 08/25/24
Cause of : Respiratory Failure due to heart failure with preserved ejection fraction, Obstructive Sleep Apnea, and acute on chronic kidney disease
Family Notified: Yes (Son Willie aware)
--- NOTE | 2024-08-25 15:02 | PTCARENOTE ---
Pt . Dr Richard at bedside to pronounce. Family notified.
--- NOTE | 2024-08-25 15:07 | W.DCSUMMARY ---
Discharge Summary
Discharge Data
Date of Admission: 08/24/24
Date of Discharge: 08/25/24
-
Pending Results: No
Discharge Plan
-
Patient Disposition:
Date/Time
Date/Time: 08/25/24 14:36
Discharge Date and Time
Print Language: INDONESIAN
== END 2024-08-25 14:36 | disposition expired | DRG 951 ==
LOC: 2 NORTH 13:30
PROVIDERS: ADMITTING PHYSICIAN Student in an Organized Health Care Education/Training Program; ATTENDING PHYSICIAN Internal Medicine
DX: Z51.5 Encounter for palliative care (principal); J96.22 Acute and chronic respiratory failure with hypercapnia; I50.33 Acute on chronic diastolic (congestive) heart failure; J96.21 Acute and chronic respiratory failure with hypoxia; I13.0 Hypertensive heart and chronic kidney disease with heart failure and stage 1 through stage 4 chronic kidney disease, or unspecified chronic kidney disease; E87.29 Other acidosis; N18.9 Chronic kidney disease, unspecified; E11.8 Type 2 diabetes mellitus with unspecified complications; E78.00 Pure hypercholesterolemia, unspecified; I25.10 Atherosclerotic heart disease of native coronary artery without angina pectoris; J44.9 Chronic obstructive pulmonary disease, unspecified; K21.9 Gastro-esophageal reflux disease without esophagitis; G47.33 Obstructive sleep apnea (adult) (pediatric); Z66 Do not resuscitate; Z88.8 Allergy status to other drugs, medicaments and biological substances; Z79.890 Hormone replacement therapy; Z90.49 Acquired absence of other specified parts of digestive tract